=== PATIENT | female | born 1960 | race Two or more races ===

== ENCOUNTER 2016-10-12 10:07 | Day surgery (SDC) | payer OTHER ==
[~2016-10-12] VITALS: Ht 157.5 cm; Wt 125.2 kg
[~2016-10-12 10:07] MED LIST: ASPI81TA9 PO; BECL8.7A6 IH; DILT180C29 PO; Doxycycline Hyclate PO; EDOX60TA PO; GUAI600T38 PO; LEVO500T38 PO; LISI20TA PO; MONT10TA6 PO; PROAIR HFA8.5 GM IH
[2016-10-12] MEDS ORDERED: IV RINGERS,LACTATED 1000ML 1,000 ML IV SCH ×2 (10:18→11:31)
[2016-10-12] MEDS ORDERED: PROPOFOL 20 ML IV ONE (10:22)
[2016-10-12] MEDS ORDERED: MIDAZOLAM HCL/PF 2 MG/2 ML VIAL. ONE (10:22)
[2016-10-12] MEDS ORDERED: LIDOCAINE 2% 100 MG/5 ML SYRINGE. ONE (10:22)
[2016-10-12] MEDS ORDERED: FENTANYL PF 100 MCG/2 ML VIAL. ONE (10:22)
[2016-10-12] MEDS ORDERED: FENTANYL PF 100 MCG/2 ML VIAL. IV PRN ×3 (10:30→11:45)
[2016-10-12] MEDS ORDERED: CEFAZOLIN 2GM PREMIX 50 ML IV ONE (10:30)
[2016-10-12] MEDS ORDERED: LIDOCAINE 1% 1 ML SYRINGE. ID PRN ×2 (10:30→11:45)
[2016-10-12] MEDS ORDERED: MIDAZOLAM HCL/PF 2 MG/2 ML VIAL. IV PRN (10:30)
[2016-10-12] MEDS ORDERED: ACETAMINOPHEN INTRAVENOUS 100 ML IV ONE (10:30)
[2016-10-12] MEDS ORDERED: BUPIVACAINE-EPI 0.25%-1:200000 MPF 30 ML VIAL. ONE (10:44)
[2016-10-12] MEDS ORDERED: CEFAZOLIN PREMIX 2 GM/50 ML BAG. IV ONE (11:00)
[2016-10-12] MEDS ORDERED: DEXAMETHASONE SOD PHOS 20 MG/5 ML VIAL. ONE (11:17)
[2016-10-12] MEDS ORDERED: PHENYLEPHRINE in 0.9% NACL PF 1 MG/10 ML DISP.SYRIN. IV ONE (11:17)
[2016-10-12] MEDS ORDERED: ONDANSETRON PF 4 MG/2 ML VIAL. ONE (11:17)
[2016-10-12] MEDS ORDERED: SEVOFLURANE 61 TO 120 MINUTES. IH ONE (11:33)
[2016-10-12] MEDS ORDERED: DESFLURANE 31 TO 60 MINUTES IH ONE (11:33)
[2016-10-12] MEDS ORDERED: KETOROLAC 60 MG/2 ML INJ FOR OR. ONE (11:36)
[2016-10-12] MEDS ORDERED: MORPHINE SULFATE 2 MG/ML DISP.SYRIN. IV PRN (11:45)
[2016-10-12] MEDS ORDERED: HYDROMORPHONE 2 MG/ML VIAL. IV PRN (11:45)
[2016-10-12] MEDS ORDERED: ONDANSETRON PF 4 MG/2 ML VIAL. IV PRN (11:45)
[2016-10-12] MEDS ORDERED: PROCHLORPERAZINE 10 MG/2 ML VIAL. IV PRN (11:45)
[2016-10-12] MEDS ORDERED: HYDROCODONE/APAP 5/325MG TABLET. ONE (12:27)
[2016-10-12] MEDS: FENTANYL PF 100 MCG/2 ML VIAL. IV PRN ×2 (12:29→13:01)
[2016-10-12] MEDS ORDERED: HYDROCODONE/APAP 5/325MG TABLET. PO ONE (12:30)
--- NOTE | 2016-10-12 12:47 | PDOC ---
BRIEF OPERATIVE NOTE Date: Oct 12, 2016 Pre-Op Diagnosis Right breast mass Post-Op Diagnosis Same with breast abscess Procedure Performed Excision of mass Surgeon Kenroy Anesthesia Type: General Blood Loss 30ml Specimens Obtained Right breast mass and cultures Findings as above Complications None MANOLO GALICIA MD Oct 12, 2016 12:47
--- NOTE | 2016-10-12 12:48 | DISCH ---
DISCHARGE INSTRUCTIONS Condition on Discharge Condition on Discharge: Stable Activity After Discharge Activity Instructions for Disc: Activity as tolerated Diet after Discharge Diet after Discharge: Regular Wound Incision Care Other wound/incision instructi: May shower in 24 hours Contacting the after DC Call your doctor for: If your condition worsens Follow-Up Follow up with: Dr Galicia in 2 weeks MANOLO GALICIA MD Oct 12, 2016 12:48
[2016-10-12] MEDS ORDERED: AMOX1TAB61 PO (12:53)
[2016-10-12] MEDS ORDERED: HYDR-971 PO (12:55)
[2016-10-12 13:30] VITALS: BP 110/57
--- NOTE | 2016-10-12 14:09 | OP ---
DATE OF SURGERY: 10/12/2016 PREOPERATIVE DIAGNOSIS: Right breast mass. POSTOPERATIVE DIAGNOSIS: Right breast mass. PROCEDURE: Excision of mass. SURGEON: Dr. Lui Galicia. INDICATIONS: The patient is a 56-year-old female who had an incision and drainage of a breast abscess several months ago. She subsequently developed some granulation tissue above the skin in that area. Recently, she has been having some more drainage. Procedure of excision of mass was explained to the patient in detail. Risks and benefits were also discussed including bleeding and infection. Alternatives of procedure were also discussed with the patient who seemed to understand and gave verbal and written consent to have the procedure performed. DESCRIPTION OF PROCEDURE: The patient was taken to the operating room and placed in the supine position. General anesthesia was initiated. Once the patient was asleep, her right breast was prepped and draped in the usual sterile fashion using Betadine scrub and solution. It was noted that there was some purulent drainage from this area. Cultures were taken. Using 10-blade scalpel, elliptical incision was made at the skin around the mass, was carried down through the subcutaneous tissue with electrocautery for hemostasis. It was noted that the mass was approximately 8 cm x 8 cm. There was also an area of some fluctuance that connected to the mass that appeared to be abscess. This was drained and excised with the mass. Electrocautery was used to provide hemostasis. The wound was irrigated and suctioned dry. The wound was then closed in 2 layers, deep layer with running 3-0 Vicryl, and the skin was reapproximated with 4-0 subcuticular Monocryl. Mastisol, Steri-Strips, 4 x 4's, and Medipore tape were applied as dressing. The patient was awakened, extubated in the operating room, taken to recovery in stable condition. All sponge, instrument counts were listed as correct. Estimated blood loss 20 mL. LUI GALICIA MD DR: CHOCO/matheus JOB#: [id number] / [id number] DRU Combs MD
== END 2016-10-12 13:40 | disposition home or self-care (01) ==
LOC: SURG 10:07
PROVIDERS: ATTEND Surgery
DX: N63 Unspecified lump in breast (principal); J45.909 Unspecified asthma, uncomplicated; E66.9 Obesity, unspecified; M19.90 Unspecified osteoarthritis, unspecified site; I10 Essential (primary) hypertension; I48.91 Unspecified atrial fibrillation; D64.9 Anemia, unspecified; Z98.51 Tubal ligation status
CPT/HCPCS: 19120; 87071; 87075; 87205; J0690; J1100; J1885; J2250; J2370; J2405; J2704; J3010

== ENCOUNTER 2016-11-10 07:10 | Day surgery (SDC) | payer OTHER ==
[~2016-11-10] VITALS: Ht 157.5 cm; Wt 123.8 kg
[~2016-11-10 07:10] MED LIST changes: +ACETAMINOPHEN INTRAVENOUS 100 ML IV ONE; +ACETAMINOPHEN INTRAVENOUS 100 ML IV PRN; +AMOX1TAB61 PO; +HYDR-971 PO; +HYDROmorphone 2 MG/ML VIAL IV PRN; +IV RINGERS,LACTATED 1000ML 1,000 ML IV SCH; +LIDOCAINE 1% 1 ML SYRINGE. ID PRN; +MORPHINE SULFATE 2 MG/ML DISP.SYRIN. IV PRN; +ONDANSETRON PF 4 MG/2 ML VIAL. IV PRN; +PROCHLORPERAZINE 10 MG/2 ML VIAL. IV PRN; +fentaNYL PF VIAL 100 MCG/2 ML VIAL IV PRN
[2016-11-10] MEDS ORDERED: LIDOCAINE 1% / SOD BICARB 8.4% 20 ML VIAL. IJ ONE (07:45)
[2016-11-10] MEDS ORDERED: BENA1TAB44 PO (07:48)
[2016-11-10] MEDS ORDERED: LIDOCAINE 2% 100 MG/5 ML SYRINGE. ONE (08:22)
[2016-11-10] MEDS ORDERED: fentaNYL PF VIAL 100 MCG/2 ML VIAL ONE (08:22)
[2016-11-10] MEDS ORDERED: PROPOFOL 100 ML IV ONE (08:22)
[2016-11-10] MEDS ORDERED: ISOSULFAN BLUE 50 MG/5 ML VIAL. SQ ONE (09:18)
[2016-11-10] MEDS ORDERED: SEVOFLURANE 16 TO 30 MINUTES. IH ONE (09:49)
[2016-11-10] MEDS ORDERED: PHENYLEPHRINE in 0.9% NACL PF 1 MG/10 ML DISP.SYRIN. IV ONE (09:49)
[2016-11-10] MEDS ORDERED: DEXAMETHASONE SOD PHOS 20 MG/5 ML VIAL. ONE (09:49)
[2016-11-10] MEDS ORDERED: ONDANSETRON PF 4 MG/2 ML VIAL. ONE (10:02)
--- NOTE | 2016-11-10 10:16 | RAD ---
Right breast radionuclide sentinel node localization, 11/10/2016: History: Right breast cancer Under aseptic conditions and utilizing ethyl chloride spray for topical anesthesia a total of 1.1 mCi of technetium 99 M filtered sulfur colloid mixed with 0.5 cc of 1% buffered lidocaine was injected subdermally in the right periareolar region in 4 divided doses. No imaging was performed. The patient tolerated the procedure well and was sent to surgery in good condition.
--- NOTE | 2016-11-10 10:45 | PDOC ---
BRIEF OPERATIVE NOTE Date: November 10, 2016 Pre-Op Diagnosis Right breast cancer Post-Op Diagnosis Same Procedure Performed Right excision of lumpectomy site and SLND Surgeon Kenroy Anesthesia Type: General Blood Loss 50ml Specimens Obtained Breast tissue and right axillary sentinal lymph nodes Findings as above Complications None MANOLO GALICIA MD November 10, 2016 10:45
--- NOTE | 2016-11-10 10:46 | DISCH ---
DISCHARGE INSTRUCTIONS Condition on Discharge Condition on Discharge: Stable Activity After Discharge Activity Instructions for Disc: Activity as tolerated Diet after Discharge Diet after Discharge: Regular Wound Incision Care Other wound/incision instructi: Dori shower in 24 hours Contacting the after DC Call your doctor for: If your condition worsens Follow-Up Follow up with: Dr Galicia in 2 weeks MANOLO GALICIA MD November 10, 2016 10:46
[2016-11-10] MEDS: fentaNYL PF VIAL 100 MCG/2 ML VIAL IV PRN ×4 (10:54→12:11)
[2016-11-10] MEDS ORDERED: HYDROCODONE/APAP 5/325MG TABLET. PO ONE (11:15)
--- NOTE | 2016-11-10 11:28 | OP ---
DATE OF SURGERY: 11/10/2016 PREOPERATIVE DIAGNOSIS: Right breast cancer. POSTOPERATIVE DIAGNOSIS: Right breast cancer. PROCEDURE: Re-excision of lumpectomy and sentinel lymph node dissection. SURGEON: Lui Galicia M.D. INDICATIONS: The patient is a 56-year-old female, underwent excision of a right breast mass which subsequently turned out to have non-invasive carcinoma with close margins. The procedure of re-excision and sentinel lymph node biopsy was explained to the patient in detail. Risks, benefits were also discussed including bleeding and infection. Alternatives of this procedure were also discussed with the patient, who seemed to understand and gave verbal and written consent to have the procedure performed. DESCRIPTION OF PROCEDURE: The patient was taken to the operating room and placed in the supine position, general anesthesia was initiated. Once the patient was asleep and intubated, her right chest and axilla were prepped and draped in usual sterile fashion using ChloraPrep. A 5 mL of Lymphazurin were injected around the nipple-areolar complex. Once this was complete, attention was turned to re-excision of the lumpectomy site. The scar was excised with a 10 blade scalpel, was carried down through subcutaneous tissue with electrocautery for hemostasis to excise area of breast tissue. This was sent for pathology, marked with 2 sutures, long suture was for lateral margin and the short suture for superior margin of the specimen. Electrocautery was used to provide hemostasis. Once this was completed, it was packed with laparoscopic sponges and attention was returned to the sentinel node of biopsy. There was good C-Trak radioactive marker in the axilla, where there was the highest, this is where the incision was made with 10 blade scalpel, was carried down through subcutaneous tissue with electrocautery for hemostasis. Lymphazurin was visualized going to a fairly large cluster of at least 2 nodes. These were excised and showed a very high degree of radioactivity about the C-Trak. Electrocautery was used to control hemostasis and the wound was closed in 2 layers, a deep layer with running 3-0 Vicryl and the skin was reapproximated with 4-0 subcuticular Monocryl. Lumpectomy incision was closed with running 3-0 Vicryl and a 4-0 subcuticular Monocryl. Mastisol, Steri-Strips, 4 x 4, Medipore tape were applied as dressings. The patient was awakened, extubated in the operating room, taken to recovery in stable condition. All sponge, instrument counts listed as correct. Estimated blood loss is 50 mL. LUI GALICIA MD DR: CHOCO/matheus JOB#: [id number] / [id number] DRU Combs MD
[2016-11-10] MEDS ORDERED: HYDR-2666 PO (11:29)
[2016-11-10 12:25] VITALS: BP 110/75
== END 2016-11-10 13:08 | disposition home or self-care (01) ==
LOC: SURG 07:10
PROVIDERS: ATTEND Surgery
DX: C50.911 Malignant neoplasm of unspecified site of right female breast (principal); I48.91 Unspecified atrial fibrillation; J45.909 Unspecified asthma, uncomplicated; I10 Essential (primary) hypertension; E66.9 Obesity, unspecified; D64.9 Anemia, unspecified; Z85.3 Personal history of malignant neoplasm of breast; Z98.51 Tubal ligation status; Z72.89 Other problems related to lifestyle
CPT/HCPCS: 19301; 38525; 38792; 96374; A9541; J0131; J1100; J2370; J2405; J2704; J3010; Q9968

== ENCOUNTER → 2016-12-21 | Outpatient (CLI) | payer OTHER ==
[~2016-12-21] MED LIST changes: -ACETAMINOPHEN INTRAVENOUS 100 ML IV ONE; -ACETAMINOPHEN INTRAVENOUS 100 ML IV PRN; +ASPI-612 PO; -ASPI81TA9 PO; +BENA1TAB44 PO; +FERR-36 PO; -GUAI600T38 PO; +GUAI600T47 PO; +HYDR-2758 PO; -HYDROmorphone 2 MG/ML VIAL IV PRN; -IV RINGERS,LACTATED 1000ML 1,000 ML IV SCH; -LEVO500T38 PO; +LEVO500T59 PO; -LIDOCAINE 1% 1 ML SYRINGE. ID PRN; -MORPHINE SULFATE 2 MG/ML DISP.SYRIN. IV PRN; -ONDANSETRON PF 4 MG/2 ML VIAL. IV PRN; -PROCHLORPERAZINE 10 MG/2 ML VIAL. IV PRN; -fentaNYL PF VIAL 100 MCG/2 ML VIAL IV PRN
--- NOTE | 2016-12-21 10:25 | CARD ---
APPROVED REPORT EXAM: LIMITED Two-dimensional echocardiogram. Other Information Quality : Technically LimitedHR: 76bpm Technically limited study due to body habitus. INDICATION LV Function: For breast cancer RISK FACTORS Obesity LEFT VENTRICLE The left ventricle is normal size. There is normal left ventricular wall thickness. The left ventricu lar systolic function is normal and the ejection fraction is within normal range. The Ejection Fracti on is 55-60%. There is grossly normal LV segmental wall motion. RIGHT VENTRICLE The right ventricle is normal size. The right ventricular systolic function is normal. AORTIC VALVE Limited echo, the cardiac valves were not assessed. GREAT VESSELS Not assessed PERICARDIAL EFFUSION There is no evidence of significant pericardial effusion. Critical Notification Critical Value: No <Conclusion> The left ventricular systolic function is normal and the ejection fraction is within normal range. Th e Ejection Fraction is 55-60%. There is grossly normal LV segmental wall motion.
== END | disposition home or self-care (01) ==
LOC: ECHO 07:34
PROVIDERS: ATTEND Internal Medicine Hematology & Oncology
DX: C50.911 Malignant neoplasm of unspecified site of right female breast (principal); E66.9 Obesity, unspecified
CPT/HCPCS: 93308

== ENCOUNTER → 2016-12-25 | Outpatient (CLI) | payer OTHER ==
[~2016-12-25] MED LIST changes: +IOHEXOL 240 MG/ML 50ML VIAL. PO ONE; +IOHEXOL 300 MG/ML 75 ML VIAL IV ONE
--- NOTE | 2016-12-25 11:09 | RAD ---
Indication malignant neoplasm right chest. Staging. Breast malignancy. Contrast imaging through the chest abdomen and pelvis was performed. Both oral and IV contrast were administered. Approximately 75 cc of Omnipaque 300 was administered intravenously. No prior CT imaging of the abdomen or pelvis is available. The chest is compared to an exam 06/15/2015. CT chest: Findings There is a fluid collection associated with the right breast likely reflecting a postop seroma or hematoma. The thoracic aorta appears unremarkable. There are a few small mediastinal lymph nodes which are likely incidental and appear similar to the previous exam. No acute finding is seen in the chest. There is no dominant soft tissue mass in either lung. There is no evidence of metastatic disease to the chest CT abdomen and pelvis: Findings. There are a few lymph nodes in the groin. These are likely incidental. There is a well-defined soft tissue mass adjacent to the splenic flexure of the large bowel measuring approximately 2 cm in greatest dimension. This is of doubtful clinical significance. It is similar to the previous exam. It may represent a splenule. The liver is unremarkable. The spleen appears normal. The gallbladder is grossly normal. No pancreatic mass is seen. No adrenal mass is seen and the kidneys appear normal. An acute finding in the abdomen or evidence of metastatic disease is not seen. In the pelvis no acute finding is seen. There is no evidence of metastatic disease. IMPRESSION: No acute finding seen in the chest, abdomen or pelvis. No definite evidence of metastatic disease. Postop seroma or hematoma right breast. Soft tissue mass, likely incidental, in the left upper abdomen similar to the study 06/15/2015. PQRS Compliance Statement: One or more of the following individualized dose reduction techniques were utilized for this examination: 1. Automated exposure control 2. Adjustment of the mA and/or kV according to patient size 3. Use of iterative reconstruction technique
--- NOTE | 2016-12-25 14:22 | RAD ---
Bone Scintigraphy - Whole Body: Radiopharmaceutical: 26 mCi Tc-99m HDP I.V. History: History of breast cancer, staging. Comparison: CT chest abdomen pelvis same day exam. Findings: Delayed anterior and posterior whole body bone scintigraphy was performed. There is normal distribution of activity throughout the skeleton. Faint radiotracer uptake identified in the bilateral shoulder joints, bilateral knees, ankles and thoracolumbar vertebral region likely degeneration. Faint nonspecific radiotracer uptake identified in the distal sternum ( no corresponding lesion identified on CT scan). Impression: No evidence to suggest osteoblastic skeletal metastasis.
--- NOTE | 2016-12-26 10:21 | RAD ---
DATE: 12/25/2016 EXAM: DIGITAL DIAGNOSTIC BILATERAL, BREAST RIGHT HISTORY: History of breast cancer, lumpectomy COMPARISON: None available This study was interpreted with the benefit of Computerized Aided Detection (CAD ). FINDINGS: Breast Density: SCATTERED The breast parenchyma shows scattered fibroglandular densities. Breast parenchyma level B. There is irregular appearing density at 6: 00 position in the posterior right breast which persists on the spot compression views. Multiple bilateral intramammary lymph nodes identified. On ultrasound of the right breast there is a 4.9 x 3 0.6 to 3.2 cm cystic echogenicity identified containing linear echogenicity is within. Please note that there are no comparison mammograms available. ( Patient stated that she hasn't had a mammogram in the last 7 years.) IMPRESSION: Irregular appearing cystic echogenicity with echogenicity within identified at 6:00 position the right posterior breast, likely hematoma or seroma due to recent surgery. BI-RADS CATEGORY: 3 PROBABLE BENIGN-SHORT TERM F/U RECOMMENDED FOLLOW-UP: Ultrasound right breast in one month PQRS compliance statement: Patient information was entered into a reminder system with a target due date 01/24/2017 for the next mammogram. Mammography is a sensitive method for finding small breast cancers, but it does not detect them all and is not a substitute for careful clinical examination. A negative mammogram does not negate a clinically suspicious finding and should not result in delay in biopsying a clinically suspicious abnormality. "Our facility is accredited by the [employer] Mammography Program." ROSALIED
== END | disposition home or self-care (01) ==
LOC: NM 07:32
PROVIDERS: ATTEND Internal Medicine Hematology & Oncology
DX: C50.911 Malignant neoplasm of unspecified site of right female breast (principal); I10 Essential (primary) hypertension; I48.91 Unspecified atrial fibrillation; J45.909 Unspecified asthma, uncomplicated; Z79.01 Long term (current) use of anticoagulants
CPT/HCPCS: 71260; 74177; 76641; 78306; 96374; A9503; G0204; Q9966; Q9967; 77066

== ENCOUNTER 2016-12-26 06:35 | Day surgery (SDC) | payer OTHER ==
[~2016-12-26] VITALS: Ht 157.5 cm; Wt 123.4 kg
[~2016-12-26 06:35] MED LIST changes: +HYDROmorphone 2 MG/ML VIAL IV PRN; -IOHEXOL 240 MG/ML 50ML VIAL. PO ONE; -IOHEXOL 300 MG/ML 75 ML VIAL IV ONE; +IV RINGERS,LACTATED 1000ML 1,000 ML IV SCH; +LIDOCAINE 1% 1 ML SYRINGE. ID PRN; +MEPERIDINE PF 25 MG/ML VIAL. IV PRN; +MIDAZOLAM HCL/PF 2 MG/2 ML VIAL. IV PRN; +MORPHINE SULFATE 4 MG/ML DISP.SYRIN. IV PRN; +PROCHLORPERAZINE 10 MG/2 ML VIAL. IV PRN; +diphenhydrAMINE 50 MG/ML VIAL IV PRN; +fentaNYL PF VIAL 100 MCG/2 ML VIAL IV PRN
[2016-12-26] MEDS ORDERED: HEPARIN PF 500 UNIT/5 ML DISP.SYRIN. IV ONE ×2 (07:24→08:16)
[2016-12-26] MEDS ORDERED: BUPIVACAINE 0.25% 50 ML VIAL. ONE (07:24)
[2016-12-26] MEDS ORDERED: HEPARIN for IV BOLUS 10,000 UNIT/10 ML VIAL. ONE (07:25)
[2016-12-26] MEDS ORDERED: PROPOFOL 20 ML IV ONE (07:30)
[2016-12-26] MEDS ORDERED: MIDAZOLAM HCL/PF 2 MG/2 ML VIAL. ONE (07:30)
--- NOTE | 2016-12-26 07:34 | PDOC1 ---
History and Physical Date of Admission Date of Admission DATE: 12/26/16 TIME: 07:31 Identification/Chief Complaint Chief Complaint Right breast cancer Problems: History of Present Illness History of Present Illness 56 yo female with history of right breast cancer. Here for placement of port-a- cath for chemotherapy. Past Medical History Cardiovascular: HTN Pulmonary: Asthma CENTRAL NERVOUS SYSTEM: Other GI: No pertinent hx Heme/Onc: No pertinent hx Hepatobiliary: No pertinent hx Psych: No pertinent hx Musculoskeletal: Osteoarthritis Rheumatologic: No pertinent hx Infectious disease: No pertinent hx Renal/: No pertinent hx Endocrine: No pertinent hx Past Surgical History Past Surgical History: Tubal Ligation, Other Family History Family History: Coronary Artery Disease, Stroke Social History ALCOHOL: none Drugs: None Current Medications Current Medications Current Medications Fentanyl Citrate (Fentanyl 2ml Vial) 50 mcg PRN Q5MIN PRN IV Acute Pain; Start 12/25/16 at 12:15; Stop 12/26/16 at 12:14 Morphine Sulfate 4 mg PRN Q10MIN PRN IV Moderate Pain; Start 12/25/16 at 12:15 ; Stop 12/26/16 at 12:14 Hydromorphone HCl (Dilaudid) 0.4 mg PRN Q10MIN PRN IV Moderate to severe pain; Start 12/25/16 at 12:15; Stop 12/26/16 at 12:14 Meperidine HCl (Demerol) 12.5 mg PRN Q5MIN PRN IV SHIVERING; Start 12/25/16 at 12:15; Stop 12/26/16 at 12:14 Prochlorperazine Edisylate (Compazine) 5 mg PRN Q6HRS PRN IV Nausea/Vomiting, 1st Choice; Start 12/25/16 at 12:15; Stop 12/26/16 at 12:14 Diphenhydramine HCl (Benadryl) 12.5 mg PRN Q2HR PRN IV ITCHING; Start 12/25/16 at 12:15; Stop 12/26/16 at 12:14 Midazolam HCl (Versed) 2 mg PRN 1X PRN IV PRIOR TO PROCEDURE; Start 12/25/16 at 12:15; Stop 12/26/16 at 12:14 Midazolam HCl (Versed) 1 mg PRN 1X PRN IV PRIOR TO PROCEDURE; Start 12/25/16 at 12:15; Stop 12/26/16 at 12:14 Fentanyl Citrate (Fentanyl 2ml Vial) 25 mcg PRN Q5MIN PRN IV X 2 DOSES FOR PAIN ; Start 12/25/16 at 12:15; Stop 12/26/16 at 12:14 Fentanyl Citrate (Fentanyl 2ml Vial) 50 mcg PRN Q5MIN PRN IV X 2 DOSES FOR PAIN ; Start 12/25/16 at 12:15; Stop 12/26/16 at 12:14 Ringer's Solution 1,000 ml @ 125 mls/hr Q8H IV Last administered on 12/26/16t 07:15; Start 12/25/16 at 12:14; Stop 12/26/16 at 00:13; Status DC Lidocaine HCl 2 ml 1X PRN PRN ID IV START; Start 12/25/16 at 12:15; Stop at 12:14 Cefazolin Sodium/ Dextrose 50 ml @ 100 mls/hr 1X PREOP PRN IV PRIOR TO PROCEDURE; Start 12/26/16 at 06:00; Stop 12/26/16 at 18:00 Heparin Sodium (Porcine) (Hep Lock Adult) 500 unit STK-MED ONCE IV ; Start 12/26 at 07:24; Stop 12/26/16 at 07:25; Status DC Bupivacaine HCl (Marcaine 0.25%) 50 ml STK-MED ONCE .ROUTE ; Start 12/26/16 at 07:24; Stop 12/26/16 at 07:25; Status DC Heparin Sodium (Porcine) (Heparin Sodium) 10,000 unit STK-MED ONCE .ROUTE ; Start 12/26/16 at 07:25; Stop 12/26/16 at 07:26; Status DC Propofol 20 ml @ As Directed STK-MED ONCE IV ; Start 12/26/16 at 07:30; Stop at 07:31; Status DC Active Scripts Active Savaysa (Edoxaban Tosylate) 60 Mg Tablet 60 Mg PO DAILY Diltiazem 24HR Cd (Diltiazem Hcl) 180 Mg Cap.er.24h 180 Mg PO DAILY Aspirin Ec (Aspirin) 81 Mg Tablet.dr 81 Mg PO DAILYWBKFT 30 Days Singulair Tablet (Montelukast Sodium) 10 Mg Tablet 10 Mg PO QHS Reported Iron (Ferrous Sulfate) 325 Mg Tablet 325 Mg PO BID Lotensin Hct 20-25 mg Tablet (Benazepril/Hydrochlorothiazide) 1 Each Tablet 1 Each PO DAILY Proair Hfa Inhaler (Albuterol Sulfate) 8.5 Gm Hfa.aer.ad 2 Puff IH PRN QID PRN not given today, every 6 hrs as needed for shortness of breath Qvar 80MCG Inhaler (Beclomethasone Dipropionate) 8.7 Gm Aer.w.adap 1 Puff IH PRN BID PRN next dose tonight, 12-10 at bedtime Allergies Allergies: Coded Allergies: No Known Drug Allergies (Unverified , 12/26/16) Physical Exam General: Alert, Oriented X3, Cooperative, No acute distress HEENT: Atraumatic, PERRLA, EOMI Lungs: Clear to auscultation, Normal air movement Heart: RRR, no gallops, no murmurs Breasts: Surgical scars noted, Unchged from prev exams Abdomen: Normal bowel sounds, Soft, No tenderness Rectal Exam: not examined Extremities: No clubbing, No cyanosis, No edema Skin: No significant lesion Neuro: Normal speech Psych/Mental Status: Mental status NL Vitals Vitals Vital Signs Date Time Temp Pulse Resp B/P (MAP) Pulse Ox O2 Delivery O2 Flow Rate FiO2 12/26/16 07:11 98.2 88 18 139/72 97 Room Air 98.2 VTE Prophylaxis Ordered VTE Prophylaxis Devices: Yes VTE Pharmacological Prophylaxi: Contraindicated Assessment/Plan Assessment/Plan 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
--- NOTE | 2016-12-26 08:43 | PDOC ---
BRIEF OPERATIVE NOTE Date: Dec 26, 2016 Pre-Op Diagnosis Right breast cancer Post-Op Diagnosis Same Procedure Performed Port-a-cath Surgeon Kenroy Anesthesia Type: MAC Blood Loss 10ml Specimens Obtained None Findings as above Complications None MANOLO GALICIA MD Dec 26, 2016 08:43
--- NOTE | 2016-12-26 08:44 | DISCH ---
DISCHARGE INSTRUCTIONS Condition on Discharge Condition on Discharge: Stable Activity After Discharge Activity Instructions for Disc: Activity as tolerated Other activity instructions: May shower once needle has been removed after chemotherapy Diet after Discharge Diet after Discharge: Regular Contacting the DRDasha after DC Call your doctor for: If your condition worsens Follow-Up Follow up with: Dr Galicia in 2 weeks MANOLO GALICIA MD Dec 26, 2016 08:44
[2016-12-26] MEDS ORDERED: HYDR-971 PO (08:52)
[2016-12-26] MEDS ORDERED: HYDROcodone/APAP 5/325MG 1 TAB TABLET PO PRN ×2 (09:15)
[2016-12-26 09:26] VITALS: BP 127/61
--- NOTE | 2016-12-26 09:48 | OP ---
DATE OF SURGERY: 12/26/2016 PREOPERATIVE DIAGNOSIS: Right breast cancer. POSTOPERATIVE DIAGNOSIS: Right breast cancer. PROCEDURE: Port-A-Cath placement for chemotherapy. INDICATIONS: The patient is a 56-year-old female who had a lumpectomy for right breast cancer and is needing some chemotherapy and then long-term venous access. Procedure of Port-A-Cath placement was explained to the patient in detail. Risks and benefits were also discussed including bleeding, infection. Alternatives of this procedure were also discussed with the patient who seemed to understand and gave verbal and written consent to have the procedure performed. DESCRIPTION OF PROCEDURE: The patient was taken to the operating room and placed in the supine position. IV sedation was initiated. Once the patient was appropriately sedated, her neck and chest were prepped and draped in the usual sterile fashion using ChloraPrep. An area over the deltopectoral groove on the left side was injected with 0.25% Marcaine with epinephrine. Incision was made with a #15 blade scalpel, was carried down through subcutaneous tissues down to the cephalic vein, which was controlled proximally and distally with silk LigaSure. The vein was partially opened with a #11 blade scalpel and a Seldinger wire was placed under fluoroscopy which were transversing to the subclavian to the superior vena cava. At this point, a peel-away dilator was placed over the wire under fluoroscopy. Once the area had been dilated, the dilator was removed and a catheter was placed through the peel-away into the superior vena cava. Peel-away was then removed. The port was then placed on the end of the catheter. This was secured to the anterior chest wall through a subcutaneous pocket on the left chest with a 3-0 Prolene. Port was then accessed and there was good blood return. It was easily flushed with 100 units/mL of heparin solution. At this point, the deep subcutaneous layer was closed with a running 3-0 Vicryl. Port was then accessed with a 90 degree Posadas needle with IV tubing to be used tomorrow for chemotherapy. This was then packed with 1000 units/mL heparin, 3 mL was used. The skin was then closed with 4-0 subcuticular Monocryl. Mastisol, Steri-Strips, Telfa and Tegaderm were applied as dressing. The patient was awakened from sedation and taken to recovery in stable condition. All sponge, needle and instrument counts listed as correct. Estimated blood loss 10 mL. MANOLO GALICIA MD DR: CHOCO/matheus JOB#: [id number] / [id number]
== END 2016-12-26 09:59 | disposition home or self-care (01) ==
LOC: SURG 06:35
PROVIDERS: ATTEND Surgery
DX: C50.919 Malignant neoplasm of unspecified site of unspecified female breast (principal); I48.91 Unspecified atrial fibrillation; J45.909 Unspecified asthma, uncomplicated; E66.9 Obesity, unspecified; D64.9 Anemia, unspecified; F17.200 Nicotine dependence, unspecified, uncomplicated; M19.90 Unspecified osteoarthritis, unspecified site; I10 Essential (primary) hypertension; Z68.43 Body mass index [BMI] 50.0-59.9, adult; Z72.89 Other problems related to lifestyle
CPT/HCPCS: 36561; A4215; C1788; J0690; J2250; J2704; J3490; 36556

== ENCOUNTER → 2017-01-22 | Outpatient (CLI) | payer OTHER ==
[2016-12-26 09:26] VITALS: BP 127/61
[~2017-01-22] MED LIST changes: -HYDROmorphone 2 MG/ML VIAL IV PRN; -IV RINGERS,LACTATED 1000ML 1,000 ML IV SCH; -LIDOCAINE 1% 1 ML SYRINGE. ID PRN; -MEPERIDINE PF 25 MG/ML VIAL. IV PRN; -MIDAZOLAM HCL/PF 2 MG/2 ML VIAL. IV PRN; -MORPHINE SULFATE 4 MG/ML DISP.SYRIN. IV PRN; -PROCHLORPERAZINE 10 MG/2 ML VIAL. IV PRN; -diphenhydrAMINE 50 MG/ML VIAL IV PRN; -fentaNYL PF VIAL 100 MCG/2 ML VIAL IV PRN
--- NOTE | 2017-01-22 11:16 | RAD ---
Indication follow-up seroma. Targeted ultrasound was performed of the right breast. Note is made of an examination 12/25/2016. Note is made of surgical intervention 11/10/2016. Previously identified complex, predominantly cystic mass is again seen. The mass is considerably smaller. It now measures approximately 3.4 cm x 0.6 cm where as previously it measured approximately 3.6 x 3.2 cm. IMPRESSION: Fluid collection in the right breast persists but is considerably smaller most compatible with a collapsing hematoma or seroma. BI-RADS 2. Benign findings
== END | disposition home or self-care (01) ==
LOC: US 10:27
PROVIDERS: ATTEND Internal Medicine Hematology & Oncology
DX: C50.911 Malignant neoplasm of unspecified site of right female breast (principal)
CPT/HCPCS: 76641

== ENCOUNTER 2017-02-07 17:24 | Inpatient (IN) | payer OTHER ==
[~2017-02-07] VITALS: Ht 157.5 cm; Wt 118.9 kg
[2017-02-07] MEDS ORDERED: IV NORMAL SALINE 1000ML BAG 1,000 ML IV ONE (18:00)
[2017-02-07 18:15] LABS: BASO % 0 % (0-3); EOS % 0 % (0-3); HEMATOCRIT 25.6 % (36.0-47.0); HEMOGLOBIN 8.3 g/dL (12.0-15.5); LYMPH # 1.7 x10^3/uL (1.0-4.8); LYMPH % 14 % (24-48); MEAN CORPUSCULAR HEMOGLOBIN 24 pg (25-35); MEAN CORPUSCULAR HGB CONC 33 g/dL (31-37); MEAN CORPUSCULAR VOLUME 72 fL (79-100); MONO % 7 % (0-9); NEUT % 79 % (31-73); PLATELET COUNT 500 x10^3/uL (140-400); RED BLOOD COUNT 3.54 x10^6/uL (3.50-5.40); WHITE BLOOD COUNT 12.5 x10^3/uL (4.0-11.0)
[2017-02-07 18:16] LABS: BILIRUBIN,URINE MODERATE (NEG); GLUCOSE,URINE NEGATIVE (NEG); NITRITE,URINE NEGATIVE (NEG); PROTEIN,URINE 30 mg/dL (NEG-TRACE); UROBILINOGEN,URINE 0.2 mg/dL (0.2 mg/dL)
[2017-02-07 18:36] LABS: ALBUMIN/GLOBULIN RATIO 0.7 (1.0-1.7); GFR 11.5; MAGNESIUM 2.1 mg/dL (1.8-2.4); TOTAL BILIRUBIN 0.5 mg/dL (0.2-1.0); TOTAL PROTEIN 7.4 g/dL (6.4-8.2)
[2017-02-07 18:38] LABS: BACTERIA,URINE FEW /HPF (0-FEW); RBC,URINE 0 /HPF (0-2); SQUAMOUS EPITHELIAL CELL,UR MOD /LPF
[2017-02-07 18:47] LABS: POTASSIUM 2.5 mmol/L (3.5-5.1)
[2017-02-07] MEDS ORDERED: POTASSIUM CL 40MEQ IN 0.9%NACL 1,000 ML IV ONE (19:00)
[2017-02-07] MEDS ORDERED: ONDANSETRON PF 4 MG/2 ML VIAL. IV PRN (19:00)
[2017-02-07] MEDS ORDERED: fentaNYL PF VIAL 100 MCG/2 ML VIAL IV PRN (19:00)
[2017-02-07] MEDS ORDERED: POTASSIUM CHLORIDE 20 MEQ TABLET.ER. PO ONE (19:00)
[2017-02-07 19:43] LABS: ANISOCYTOSIS MOD; HYPOCHROMIA SLIGHT; MICROCYTOSIS SLIGHT; NUCLEATED RBC 5; PLT ESTIMATE INCREASED (ADEQUATE); POLYCHROMASIA SLIGHT
[2017-02-07 20:40] VITALS: BP 113/52
[2017-02-07] MEDS ORDERED: LIDO30CR TP (21:21)
[2017-02-07] MEDS ORDERED: DEXA4TAB PO (21:21)
[2017-02-07] MEDS ORDERED: ONDA8TAB9 PO (21:21)
[2017-02-07] MEDS ORDERED: MONT10TA9 PO (21:21)
--- NOTE | 2017-02-07 21:41 | PHYS DOC ---
Past Medical History Past Medical History: Asthma, Cancer, Hypertension, Other Additional Past Medical Histor: fractured tailbone, low back contusion, R BREAST CA Past Surgical History: Tubal ligation, Other Additional Past Surgical Histo: VARY & FILLOPIAN TUBE REMOVED, SINUS, L CHEST PORT, R LUMPECTOMY Alcohol Use: Rarely Drug Use: None Adult General Chief Complaint Chief Complaint: ABNORMAL LABS [facility] HPI Patient is a 56 year old female presenting to the emergency department for evaluation of an elevated creatinine level. He has a normal creatinine 0.9 however on her lab tests today was 4.0 and she admits that she has not been eating or drinking much at home. She received a blood transfusion prior to coming here and says that she is feeling somewhat better after the transfusion. Patient denies any chest pain shortness of breath diaphoresis nausea vomiting or diarrhea. She is in no obvious distress with normal vital signs. She is getting chemotherapy and her oncologist is Dr. Romero. Review of Systems Review of Systems Constitutional: Denies fever or chills [] Eyes: Denies change in visual acuity, redness, or eye pain [] HENT: Denies nasal congestion or sore throat [] Respiratory: Denies cough or shortness of breath [] Cardiovascular: No additional information not addressed in HPI [] GI: Denies abdominal pain, nausea, vomiting, bloody stools or diarrhea [] : Denies dysuria or hematuria [] Musculoskeletal: Denies back pain or joint pain [] Integument: Denies rash or skin lesions [] Neurologic: Denies headache, focal weakness or sensory changes [] Allergies Allergies Allergies Coded Allergies Type Severity Reaction Last Updated Verified No Known Drug Allergies 02/07/17 No Physical Exam Physical Exam Constitutional: Well developed, well nourished, no acute distress, non-toxic appearance. [] HENT: Normocephalic, atraumatic, bilateral external ears normal, oropharynx moist, no oral exudates, nose normal. [] Eyes: PERRLA, EOMI, conjunctiva pale, no discharge. [] Neck: Normal range of motion, no tenderness, supple, no stridor. [] Cardiovascular:Heart rate regular rhythm, no murmur [] Lungs & Thorax: Bilateral breath sounds clear to auscultation [] Abdomen: Bowel sounds normal, soft, no tenderness, no masses, no pulsatile masses. [] Skin: Warm, dry, no erythema, no rash. [] Back: No tenderness, no CVA tenderness. [] Extremities: No tenderness, no cyanosis, no clubbing, ROM intact, no edema. [] Neurologic: Alert and oriented X 3, normal motor function, normal sensory function, no focal deficits noted. [] Current Patient Data Vital Signs Vital Signs Date Time Temp Pulse Resp B/P (MAP) Pulse Ox O2 Delivery O2 Flow Rate FiO2 02/07/17 17:35 97.9 93 20 126/69 (88) 98 Room Air 97.9 Lab Values Laboratory Tests Test 02/07/17 17:34 Urine Collection Type Unknown Urine Color [place] Urine Clarity Cloudy Urine pH 5.0 Urine Specific [place] 1.025 Urine Protein 30 mg/dL (NEG-TRACE) Urine Glucose (UA) Negative mg/dL (NEG) Urine Ketones (Stick) Trace mg/dL (NEG) Urine Blood Trace (NEG) Urine Nitrite Negative (NEG) Urine Bilirubin Moderate (NEG) Urine Urobilinogen Dipstick 0.2 mg/dL (0.2 mg/dL) Urine Leukocyte Esterase Negative (NEG) Urine RBC 0 /HPF (0-2) Urine WBC 5-10 /HPF (0-4) Urine Squamous Epithelial Cells Mod /LPF Urine Transitional Epithelial Cells Few /LPF Urine Amorphous Sediment Present /HPF Urine Bacteria Few /HPF (0-FEW) Urine Hyaline Casts Many /HPF Urine Mucus Mod /LPF EKG EKG [] Radiology/Procedures Radiology/Procedures [] Course & Med Decision Making Course & Med Decision Making Patient is anemic and has increased creatinine level likely from dehydration. He is profoundly hypokalemic so she will have her electrolytes replaced in addition to being rehydrated and be admitted for further observation and treatment. Dragon Disclaimer Dragon Disclaimer This electronic medical record was generated, in whole or in part, using a voice recognition dictation system. Departure Departure Impression: Primary Impression: Renal failure Additional Impressions: Anemia Breast cancer Hypokalemia Disposition: ADMITTED INPATIENT Condition: STABLE Referrals: DRU BUI MD (PCP) Problem Qualifiers Primary Impression: Renal failure Renal failure chronicity: acute Acute renal failure type: unspecified Qualified Codes: N17.9 - Acute kidney failure, unspecified CYNTHIA RAHMAN DO Feb 07, 2017 21:41
[2017-02-07] MEDS ORDERED: NON FORMULARY ITEM (Beclomethasone Dipropionate (Qvar 80MCG Inhaler) 1 PUFF) IH PRN (22:15)
[2017-02-07] MEDS ORDERED: NON FORMULARY ITEM (Albuterol Sulfate (Proair Hfa Inhaler) 2 PUFF) IH PRN (22:15)
[2017-02-07] MEDS ORDERED: ONDANSETRON ODT 4 MG TAB.RAPDIS. PO PRN (22:30)
[2017-02-07] MEDS: POTASSIUM CHLORIDE 30 MEQ in IV NORMAL SALINE 1000ML BAG 1,000 ML IV SCH (23:00)
[2017-02-07 23:09] VITALS: BP 110/39
--- NOTE | 2017-02-07 23:09 | HP ---
ADMIT DATE: 02/07/2017 CHIEF COMPLAINT: Anemia. HISTORY OF PRESENT ILLNESS: The patient is a 56-year-old -P[place]deinig woman who had been diagnosed with breast CA in October of this year, had undergone lumpectomy and is currently undergoing chemotherapy under Dr. Romero's guidance with AC given q.2 weeks. She is technically due for her 4th infusion tomorrow and had her routine followup with Dr. Romero today. She was found with significant anemia and therefore referred to the Emergency Room for transfusions. She admits to significant fatigue and not feeling well. She actually had difficulties with her last chemo round requiring Diflucan and Magic mouthwash for oral thrush and her p.o. intake was decreased. In addition, she had developed diarrhea on Sunday, which lasted approximately 48 hours, got better on Sunday. In the Emergency Room, she was found with significant elevation of her creatinine over her normal baseline and is admitted for anemia as well as acute kidney failure. PAST MEDICAL HISTORY: Chronic anemia, has been on iron t.i.d. for a long time, asthma, hypertension, breast cancer as above, status post right lumpectomy, currently on chemo, status post salpingo-oophorectomy. FAMILY HISTORY: No breast cancers. A sister and daughter are both anemic as well. Positive for heart history. SOCIAL HISTORY: Lives with her family. Never smoked and no toxic habits. ALLERGIES: No known drug allergies. MEDICATIONS: MAR reconciled with home medications. REVIEW OF SYSTEMS: Positive for generalized malaise, myalgias, arthralgias, diarrhea as per HPI. Denies any chest pain, any shortness of breath, no headaches, vision problems. Rest of organ system review aside from HPI is noncontributory. PHYSICAL EXAMINATION: VITAL SIGNS: From today show a blood pressure of 119/60, heart rate of 90, respiratory rate of 22. She is afebrile. GENERAL: This is a morbidly obese 56-year-old -[place] woman, alert and oriented, in no acute distress, very pleasant. HEENT: Shows no scleral icterus. NECK: Supple, without any lymphadenopathy. LUNGS: Clear bilaterally. HEART: Has regular rate and rhythm. ABDOMEN: Has positive bowel sounds, soft, nontender. EXTREMITIES: Show no edema. SKIN: Warm, soft and dry without any rash. LABORATORY DATA: CBC with a WBC of 12.5, hemoglobin 8.3, platelets of 500, MCV is 72. Differential with 19 bands (did receive Neulasta after chemo 2 weeks ago). Chemistries with a BUN and creatinine of 52 and 4.0, potassium of 4.5, sodium at 139, glucose at 121, normal LFTs, albumin at 3.0. UA with a specific gravity of 1.025, 5-10 wbc's, but only few bacteria. IMAGING STUDIES: None obtained. ASSESSMENT AND PLAN: The patient is a 56-year-old woman who is currently undergoing chemotherapy for her breast cancer with Adriamycin and Cytoxan and is now presenting with significant acute kidney injury, suspected secondary to dehydration and related to chemotherapy. We will rehydrate IV. We will replete potassium as indicated. Renal consult will be obtained. Dr. Romeor will be consulted as well. With a hemoglobin of 8, transfusion is not indicated at this time. We will continue to monitor labs. The patient has a history of atrial fibrillation with rapid ventricular response reported 3 years ago. She has been well controlled on diltiazem and is currently on edoxaban p.o. for anticoagulation. We will switch to other oral anticoagulant as available here. BETH GHOTRA MD DR: PALMER/matheus JOB#: [id number] / [id number] CASEY
[2017-02-08] VITALS (14 sets, daily range): BP systolic 76–150; BP diastolic 33–69
[2017-02-08] MEDS: POTASSIUM CHLORIDE 30 MEQ in IV NORMAL SALINE 1000ML BAG 1,000 ML IV SCH ×3 (02:08→23:36)
--- NOTE | 2017-02-08 05:41 | ACF ---
Admission Forms Criteria RENAL FAILURE, ACUTE Clinical Indications for Admission to Inpatient Care ( Place 'X' for any and all applicable criteria): Admission is indicated for ALL (if I & II) or III of the following [A](2)(3)(4)( 5)(6)(7): [X]I. Acute renal failure as indicated by ANY ONE of the following: [X]a) A 3-fold rise in serum creatinine from baseline [ ]b) Serum creatinine greater than 4 mg/dL (354 micromoles/L) with an acute rise greater than 0.5 mg/dL (44.2 micromoles/L) [ ]c) Reduction of more than 75% in estimated glomerular filtration rate from baseline [ ]d) Estimated glomerular filtration rate less than 35 mL/min/1.73m2 (0.59mL/sec/1.73m2)in a child up to 18 years of age [ ]e) Anuria indicated by ALL of the following: [ ]i) Adequate volume status [ ]ii) Cessation of urine output indicated by ANY ONE of the following: [ ]1) Urine output less than 0.3 mL/kg/hr for 24 hours [ ]2) Anuria (urine output less than 0.1 mL/kg/ hr) for 12 hours [X] II. Renal failure cannot be managed in an outpatient setting or observational care setting as indicating by ANY ONE of the following: [ ]a) Altered mental status that is severe or persistent [ ]b) Volume overload or Respiratory distress (eg, clinically significant pulmonary edema) that is severe or persistent [ ]c) Cardiac arrhythmias of immediate concern [ ]d) Hemodynamic instability [ ]e) Clinically significant electrolyte abnormality that requires inpatient care (eg, hyperkalemia with severe ECG findings)[B] [ ]f) Clinically significant metabolic abnormality (eg, acidosis) that is severe or persistent [ ]g) Acute treatment of renal failure (eg, renal replacement therapy) not feasible or appropriate in observational care setting [ ]h) Clinical situation too unstable or uncertain (eg, inadequate urine output, ongoing decline in renal function, etiology unclear) [ ]i) Necessary support and caregiver ability to comply with outpatient treatment cannot be arranged in observation care timeframe (eg, within 24 hours) [X]j) Other significant finding or clinical condition judged not to be within scope of observation care [ ]III.General contraindications and/or Inappropriate clinical situations for Observational Care in patients with Acute Renal Failure, when ANY ONE of the following is required: [ ]a) Prediction of prolongation of LOS based on ANY ONE of the following may be considered as a contraindication for observational care 2, 3, 4, 5, 6, 7, 8 , 9, 10, 11 [ ]i) Age > 65 yrs. [ ]ii) Patient arriving by ambulance [ ]iii) Patient with high acuity [ ]iv) Patient requiring vital sign monitoring [ ]v) Patient on IV medication [ ]b) Systolic blood pressures 180mmHg 3,12 [ ]c) Patient with altered mental status including delirium and other alteration of consciousness, (3) [ ]d) Patient whose discharge disposition will be to a long-term home or rehabilitation home should not be managed in Emergency Department Observation Unit. CMS rule requires 3 days hospital stay before such placement.3,13 [ ]e) Patient with failure to thrive due to broad array of etiologies 3, 16,17 [ ]f) Inability to ambulate 3,14 Extended stay beyond goal length of stay may be needed for(13) [ ]a) Continuing uremic complications [ ]b) Care for comorbidities [ ]c) acute renal failure [ ]d) Need for dialysis The original [employer] content created by [employer] has been revised. The portions of the content which have been revised are identified through the use of italic text or in bold, and [facility] has neither reviewed nor approved the modified material. All other unmodified content is copyright [employer]. Please see references footnoted in the original [employer] edition 2016 Admission Criteria Met?: Yes ADRIENNE WOODS Feb 08, 2017 05:41
[2017-02-08] MEDS: HEPARIN PF for SUB-Q USE 5,000 UNIT/0.5 ML VIAL. SQ SCH ×3 (05:44→21:08)
[2017-02-08 06:49] LABS: CALCIUM 8.1 mg/dL (8.5-10.1); CREATININE 2.9 mg/dL (0.6-1.0); GFR 16.7; POTASSIUM 3.7 mmol/L (3.5-5.1)
[2017-02-08 07:45] LABS: BASO % 0 % (0-3); EOS % 0 % (0-3); LYMPH % 9 % (24-48); MEAN CORPUSCULAR HEMOGLOBIN 24 pg (25-35); MEAN CORPUSCULAR HGB CONC 32 g/dL (31-37); MEAN CORPUSCULAR VOLUME 75 fL (79-100); MONO % 9 % (0-9); NEUT % 81 % (31-73); PLATELET COUNT 398 x10^3/uL (140-400); RED BLOOD COUNT 2.71 x10^6/uL (3.50-5.40); RED CELL DISTRIBUTION WIDTH 23.2 % (11.5-14.5); WHITE BLOOD COUNT 10.7 x10^3/uL (4.0-11.0)
[2017-02-08 07:50] LABS: HEMATOCRIT 20.4 % (36.0-47.0); HEMOGLOBIN 6.5 g/dL (12.0-15.5)
[2017-02-08] MEDS: MONTELUKAST SODIUM 10 MG TABLET. PO SCH (08:18)
[2017-02-08] MEDS: ASPIRIN ENTERIC COATED 81 MG TABLET.DR. PO SCH (08:18)
[2017-02-08] MEDS: hydroCHLOROthiazide 25 MG TABLET PO SCH (08:18)
[2017-02-08] MEDS: LISINOPRIL 20 MG TABLET PO SCH (08:19)
[2017-02-08] MEDS ORDERED: NON FORMULARY ITEM (Edoxaban Tosylate (Savaysa) 60 MG) PO SCH (09:00)
[2017-02-08] MEDS ORDERED: IRON SUCROSE COMPLEX 500 MG in IV NORMAL SALINE 250ML 250 ML IV ONE (09:15)
[2017-02-08] MEDS ORDERED: hydrALAZINE 20 MG/ML VIAL. IVP PRN (10:45)
[2017-02-08] MEDS ORDERED: DOCUSATE SODIUM 100 MG CAPSULE. PO PRN (10:45)
[2017-02-08] MEDS ORDERED: MORPHINE SULFATE 2 MG/ML DISP.SYRIN. IV PRN (10:45)
[2017-02-08] MEDS ORDERED: ONDANSETRON PF 4 MG/2 ML VIAL. IV PRN (10:45)
[2017-02-08] MEDS: traMADol 50 MG TABLET PO PRN ×2 (11:43→21:01)
--- NOTE | 2017-02-08 12:11 | PDOC2 ---
CONSULT Date of Consult Date of Consult DATE: 02/08/17 TIME: 12:06 Reason for Consult Reason for Consult: REGINALD Referring Physician Referring Physician: Dr Glasgow Identification/Chief Complaint Chief Complaint weakness Problems: Source Source: Chart review, Patient History of Present Illness Reason for Visit: as dictated Baseline Creat WNL 2 yrs ago Past Medical History Cardiovascular: HTN Pulmonary: Asthma CENTRAL NERVOUS SYSTEM: Other GI: No pertinent hx Heme/Onc: No pertinent hx Hepatobiliary: No pertinent hx Psych: No pertinent hx Musculoskeletal: Osteoarthritis Rheumatologic: No pertinent hx Infectious disease: No pertinent hx Renal/: No pertinent hx Endocrine: No pertinent hx Past Surgical History Past Surgical History: Tubal Ligation, Other Family History Family History: Coronary Artery Disease, Stroke Social History ALCOHOL: none Drugs: None Lives: with Family Current Problem List Problem List Problems Medical Problems: (1) Anemia Status: Acute (2) Breast cancer Status: Acute (3) Hypokalemia Status: Acute (4) Renal failure Status: Acute Current Medications Current Medications Current Medications Sodium Chloride 1,000 ml @ 1,000 mls/hr 1X ONCE IV Last administered on 18:28; Start 02/07/17 at 18:00; Stop 02/07/17 at 18:59; Status DC Potassium Chloride (Klor-Con) 40 meq 1X ONCE PO Last administered on 02/07/17 19:32; Start 02/07/17 at 19:00; Stop 02/07/17 at 19:01; Status DC Potassium Chloride/Sodium Chloride 1,000 ml @ 150 mls/hr 1X ONCE IV Last administered on 02/07/17 19:33; Start 02/07/17 at 19:00; Stop 02/08/17 at 01:39; Status DC Ondansetron HCl (Zofran) 4 mg PRN Q8HRS PRN IV NAUSEA/VOMITING; Start 02/07/17 at 19:00; Stop 02/08/17 at 18:59 Fentanyl Citrate (Fentanyl 2ml Vial) 50 mcg PRN Q2HR PRN IV PAIN; Start at 19:00; Stop 02/08/17 at 18:59 Aspirin (Ecotrin) 81 mg DAILYWBKFT PO Last administered on 02/08/17 08:18; Start 02/08/17 at 08:00 Diltiazem HCl (Cardizem 24hr Cd) 180 mg DAILY PO Last administered on 02/08/17 08:19; Start 02/08/17 at 09:00 Montelukast Sodium (Singulair) 10 mg DAILY PO ; Start 02/08/17 at 09:00 Non-Formulary Medication 2 puff PRN QID PRN IH SHORTNESS OF BREATH; Start at 22:15; Status UNV Non-Formulary Medication 1 puff PRN BID PRN IH WHEEZING; Start 02/07/17 at 22:15 ; Status UNV Lisinopril (Prinivil) 20 mg DAILY PO Last administered on 02/08/17 08:19; Start 02/08/17 at 09:00 Non-Formulary Medication 60 mg DAILY PO ; Start 02/08/17 at 09:00; Stop 02/08/17 at 09:00; Status DC Ondansetron HCl (Zofran Odt) 8 mg PRN Q8HRS PRN PO NAUSEA/VOMITING; Start at 22:30 Hydrochlorothiazide (Hydrodiuril) 25 mg DAILY PO ; Start 02/08/17 at 09:00 Potassium Chloride 30 meq/ Sodium Chloride 1,015 ml @ 100 mls/hr Q10H9M IV Last administered on 02/08/17 02:08; Start 02/07/17 at 23:00 Heparin Sodium (Porcine) (Heparin Sq) 5,000 unit Q8HRS SQ Last administered on 02/08/17 05:44; Start 02/08/17 at 06:00 Iron Sucrose 500 mg/Sodium Chloride 275 ml @ 78.571 mls/ hr 1X ONCE IV ; Start 02/08/17 at 09:15; Stop 02/08/17 at 12:44 Iron Sucrose 500 mg/Sodium Chloride 275 ml @ 78.571 mls/ hr 1X ONCE IV ; Start 02/09/17 at 08:00; Stop 02/09/17 at 11:29 Acetaminophen (Tylenol) 650 mg PRN Q6HRS PRN PO FEVER; Start 02/08/17 at 10:45 Ondansetron HCl (Zofran) 4 mg PRN Q6HRS PRN IV NAUSEA/VOMITING; Start 02/08/17 at 10:45 Morphine Sulfate 2 mg PRN Q2HR PRN IV PAIN; Start 02/08/17 at 10:45 Tramadol HCl (Ultram) 50 mg PRN Q6HRS PRN PO PAIN Last administered on t 11:43; Start 02/08/17 at 10:45 Hydralazine HCl (Apresoline) 10 mg PRN Q4HRS PRN IVP ELEVATED BP, SEE COMMENTS ; Start 02/08/17 at 10:45 Docusate Sodium (Colace) 100 mg PRN DAILY PRN PO CONSTIPATION; Start 02/08/17 at 10:45 Active Scripts Active Savaysa (Edoxaban Tosylate) 60 Mg Tablet 60 Mg PO DAILY Diltiazem 24HR Cd (Diltiazem Hcl) 180 Mg Cap.er.24h 180 Mg PO DAILY Aspirin Ec (Aspirin) 81 Mg Tablet.dr 81 Mg PO DAILYWBKFT 30 Days Reported Zofran (Ondansetron Hcl) 8 Mg Tablet 1 Tab PO PRN Q8HRS PRN Lidocaine-Prilocaine Cream (Lidocaine/Prilocaine) 30 Gm Cream..g. 1 Sinan TP UD Dexamethasone 4 Mg Tablet 2 Tab PO DAILY Montelukast Sodium Tablet (Montelukast Sodium) 10 Mg Tablet 1 Tab PO PRN Iron (Ferrous Sulfate) 325 Mg Tablet 325 Mg PO TID Lotensin Hct 20-25 mg Tablet (Benazepril/Hydrochlorothiazide) 1 Each Tablet 1 Each PO DAILY Proair Hfa Inhaler (Albuterol Sulfate) 8.5 Gm Hfa.aer.ad 2 Puff IH PRN QID PRN not given today, every 6 hrs as needed for shortness of breath Qvar 80MCG Inhaler (Beclomethasone Dipropionate) 8.7 Gm Aer.w.adap 1 Puff IH PRN BID PRN next dose tonight, 12-10 at bedtime Allergies Allergies: Coded Allergies: No Known Drug Allergies (Unverified , 02/07/17) ROS Review of System GEN: no Fevers no Chills + Weakness no Chills EYES: + Visual Complaints (photophobia) ENT: no EN Drainage no Hearing deficiets CVS: no Orthopnea no CP RESP: no SOB no HERNANDEZ GI: + Nausea no Vomiting + Diarrhea : no Dysuria no Urgency dec Uo HEME: no easy bruising no Palp Ly Nodes NEURO no Focal Weakness no Sz PSYCH: no Suicidal Ideation no Depression SKIN: no Rashes ENDO: no Polyuria or Polydipsia no Hot/Cold Intolerance MU SK: occ Arthraigia no Myalgia Physical Exam Physical Exam General Appearance: Awake Alert Oriented x 3 In no Distress Eyes: VIsion Unchanged Conjunctiva Normal EN: No EN Drainage Mucous Memb. dryish Neck: no JVD no JVP Supple no Thyromegaly; thick neck CVS: S1 S2 no Murmur No Gallop No Rub no Edema Resp: no Rales no Rhonchi no Acc. Muscle use GI: BAS +ve NO Bruit Non Tender Non Distended : no CVA tenderness; no Suprapubic Tenderness SKIN: no Rashes Breast Exam deferred Mu.Sk: Adequate ROM no Muscle Atrophy Heme: Unable to palpate Obvious LAD no Splenomegaly NEURO: Good Strength and Tone Cranial Nerves II - XII grossly intact Psych: not Depressed no Active hallucination Vital Signs Vital Signs Date Time Temp Pulse Resp B/P (MAP) Pulse Ox O2 Delivery O2 Flow Rate FiO2 02/08/17 11:43 100 Room Air 02/08/17 11:00 97.4 84 19 126/58 97.4 Assessment & Plan ARF/ VMN - suspect due to diarrhea; better already with IVF. Current FLuid and E -lyte status does not necessitate emergent need for Dialysis. Will re-evaluate for Dialysis in am Anemia: defer management to Dr Glasgow; Transfuse as needed. Vol dpeeltioin - IVF as ordered Oliguria - suspect due to above - doubt ATN per se Low K - being replaced with IVF; check Mag Discussed Plan of Care and prognosis etc. at length with family. Labs Labs Laboratory Tests Test 02/07/17 17:34 02/07/17 17:52 02/08/17 06:15 02/08/17 07:30 Urine Collection Type Unknown Urine Color [place] Urine Clarity Cloudy Urine pH 5.0 Urine Specific [place] 1.025 Urine Protein 30 mg/dL (NEG-TRACE) Urine Glucose (UA) Negative mg/dL (NEG) Urine Ketones (Stick) Trace mg/dL (NEG) Urine Blood Trace (NEG) Urine Nitrite Negative (NEG) Urine Bilirubin Moderate (NEG) Urine Urobilinogen Dipstick 0.2 mg/dL (0.2 mg/dL) Urine Leukocyte Esterase Negative (NEG) Urine RBC 0 /HPF (0-2) Urine WBC 5-10 /HPF (0-4) Urine Squamous Epithelial Cells Mod /LPF Urine Transitional Epithelial Cells Few /LPF Urine Amorphous Sediment Present /HPF Urine Bacteria Few /HPF (0-FEW) Urine Hyaline Casts Many /HPF Urine Mucus Mod /LPF White Blood Count 12.5 x10^3/uL (4.0-11.0) 10.7 x10^3/uL (4.0-11.0) Red Blood Count 3.54 x10^6/uL (3.50-5.40) 2.71 x10^6/uL (3.50-5.40) Hemoglobin 8.3 g/dL (12.0-15.5) 6.5 g/dL (12.0-15.5) Hematocrit 25.6 % (36.0-47.0) 20.4 % (36.0-47.0) Mean Corpuscular Volume 72 fL (79-100) 75 fL (79-100) Mean Corpuscular Hemoglobin 24 pg (25-35) 24 pg (25-35) Mean Corpuscular Hemoglobin Concent 33 g/dL (31-37) 32 g/dL (31-37) Red Cell Distribution Width 24.0 % (11.5-14.5) 23.2 % (11.5-14.5) Platelet Count 500 x10^3/uL (140-400) 398 x10^3/uL (140-400) Neutrophils (%) (Auto) 79 % (31-73) 81 % (31-73) Lymphocytes (%) (Auto) 14 % (24-48) 9 % (24-48) Monocytes (%) (Auto) 7 % (0-9) 9 % (0-9) Eosinophils (%) (Auto) 0 % (0-3) 0 % (0-3) Basophils (%) (Auto) 0 % (0-3) 0 % (0-3) Neutrophils # (Auto) 9.9 x10^3uL (1.8-7.7) 8.7 x10^3uL (1.8-7.7) Lymphocytes # (Auto) 1.7 x10^3/uL (1.0-4.8) 1.0 x10^3/uL (1.0-4.8) Monocytes # (Auto) 0.9 x10^3/uL (0.0-1.1) 1.0 x10^3/uL (0.0-1.1) Eosinophils # (Auto) 0.0 x10^3/uL (0.0-0.7) 0.0 x10^3/uL (0.0-0.7) Basophils # (Auto) 0.0 x10^3/uL (0.0-0.2) 0.0 x10^3/uL (0.0-0.2) Segmented Neutrophils % 64 % (35-66) Band Neutrophils % 19 % (0-9) Lymphocytes % 6 % (24-48) Monocytes % 10 % (0-10) Myelocytes % 1 % (0-0) Nucleated Red Blood Cells 5 Platelet Estimate Increased (ADEQUATE) Polychromasia Slight Hypochromasia Slight Anisocytosis Mod Microcytosis Slight Sodium Level 139 mmol/L (136-145) 142 mmol/L (136-145) Potassium Level 2.5 mmol/L (3.5-5.1) 3.7 mmol/L (3.5-5.1) Chloride Level 100 mmol/L (98-107) 107 mmol/L (98-107) Carbon Dioxide Level 25 mmol/L (21-32) 23 mmol/L (21-32) Anion Gap 14 (6-14) 12 (6-14) Blood Urea Nitrogen 52 mg/dL (7-20) 46 mg/dL (7-20) Creatinine 4.0 mg/dL (0.6-1.0) 2.9 mg/dL (0.6-1.0) Estimated GFR (Cockcroft-Gault) 11.5 16.7 BUN/Creatinine Ratio 13 (6-20) Glucose Level 121 mg/dL (70-99) 101 mg/dL (70-99) Calcium Level 9.0 mg/dL (8.5-10.1) 8.1 mg/dL (8.5-10.1) Magnesium Level 2.1 mg/dL (1.8-2.4) Total Bilirubin 0.5 mg/dL (0.2-1.0) Aspartate Amino Transf (AST/SGOT) 20 U/L (15-37) Alanine Aminotransferase (ALT/SGPT) 22 U/L (14-59) Alkaline Phosphatase 86 U/L (46-116) Creatine Kinase 50 U/L (26-192) Total Protein 7.4 g/dL (6.4-8.2) Albumin 3.0 g/dL (3.4-5.0) Albumin/Globulin Ratio 0.7 (1.0-1.7) Laboratory Tests Test 02/07/17 17:34 02/07/17 17:52 02/08/17 06:15 02/08/17 07:30 Urine Collection Type Unknown Urine Color [place] Urine Clarity Cloudy Urine pH 5.0 Urine Specific [place] 1.025 Urine Protein 30 mg/dL (NEG-TRACE) Urine Glucose (UA) Negative mg/dL (NEG) Urine Ketones (Stick) Trace mg/dL (NEG) Urine Blood Trace (NEG) Urine Nitrite Negative (NEG) Urine Bilirubin Moderate (NEG) Urine Urobilinogen Dipstick 0.2 mg/dL (0.2 mg/dL) Urine Leukocyte Esterase Negative (NEG) Urine RBC 0 /HPF (0-2) Urine WBC 5-10 /HPF (0-4) Urine Squamous Epithelial Cells Mod /LPF Urine Transitional Epithelial Cells Few /LPF Urine Amorphous Sediment Present /HPF Urine Bacteria Few /HPF (0-FEW) Urine Hyaline Casts Many /HPF Urine Mucus Mod /LPF White Blood Count 12.5 x10^3/uL (4.0-11.0) 10.7 x10^3/uL (4.0-11.0) Red Blood Count 3.54 x10^6/uL (3.50-5.40) 2.71 x10^6/uL (3.50-5.40) Hemoglobin 8.3 g/dL (12.0-15.5) 6.5 g/dL (12.0-15.5) Hematocrit 25.6 % (36.0-47.0) 20.4 % (36.0-47.0) Mean Corpuscular Volume 72 fL (79-100) 75 fL (79-100) Mean Corpuscular Hemoglobin 24 pg (25-35) 24 pg (25-35) Mean Corpuscular Hemoglobin Concent 33 g/dL (31-37) 32 g/dL (31-37) Red Cell Distribution Width 24.0 % (11.5-14.5) 23.2 % (11.5-14.5) Platelet Count 500 x10^3/uL (140-400) 398 x10^3/uL (140-400) Neutrophils (%) (Auto) 79 % (31-73) 81 % (31-73) Lymphocytes (%) (Auto) 14 % (24-48) 9 % (24-48) Monocytes (%) (Auto) 7 % (0-9) 9 % (0-9) Eosinophils (%) (Auto) 0 % (0-3) 0 % (0-3) Basophils (%) (Auto) 0 % (0-3) 0 % (0-3) Neutrophils # (Auto) 9.9 x10^3uL (1.8-7.7) 8.7 x10^3uL (1.8-7.7) Lymphocytes # (Auto) 1.7 x10^3/uL (1.0-4.8) 1.0 x10^3/uL (1.0-4.8) Monocytes # (Auto) 0.9 x10^3/uL (0.0-1.1) 1.0 x10^3/uL (0.0-1.1) Eosinophils # (Auto) 0.0 x10^3/uL (0.0-0.7) 0.0 x10^3/uL (0.0-0.7) Basophils # (Auto) 0.0 x10^3/uL (0.0-0.2) 0.0 x10^3/uL (0.0-0.2) Segmented Neutrophils % 64 % (35-66) Band Neutrophils % 19 % (0-9) Lymphocytes % 6 % (24-48) Monocytes % 10 % (0-10) Myelocytes % 1 % (0-0) Nucleated Red Blood Cells 5 Platelet Estimate Increased (ADEQUATE) Polychromasia Slight Hypochromasia Slight Anisocytosis Mod Microcytosis Slight Sodium Level 139 mmol/L (136-145) 142 mmol/L (136-145) Potassium Level 2.5 mmol/L (3.5-5.1) 3.7 mmol/L (3.5-5.1) Chloride Level 100 mmol/L (98-107) 107 mmol/L (98-107) Carbon Dioxide Level 25 mmol/L (21-32) 23 mmol/L (21-32) Anion Gap 14 (6-14) 12 (6-14) Blood Urea Nitrogen 52 mg/dL (7-20) 46 mg/dL (7-20) Creatinine 4.0 mg/dL (0.6-1.0) 2.9 mg/dL (0.6-1.0) Estimated GFR (Cockcroft-Gault) 11.5 16.7 BUN/Creatinine Ratio 13 (6-20) Glucose Level 121 mg/dL (70-99) 101 mg/dL (70-99) Calcium Level 9.0 mg/dL (8.5-10.1) 8.1 mg/dL (8.5-10.1) Magnesium Level 2.1 mg/dL (1.8-2.4) Total Bilirubin 0.5 mg/dL (0.2-1.0) Aspartate Amino Transf (AST/SGOT) 20 U/L (15-37) Alanine Aminotransferase (ALT/SGPT) 22 U/L (14-59) Alkaline Phosphatase 86 U/L (46-116) Creatine Kinase 50 U/L (26-192) Total Protein 7.4 g/dL (6.4-8.2) Albumin 3.0 g/dL (3.4-5.0) Albumin/Globulin Ratio 0.7 (1.0-1.7) JULIANA FRENCH MD Feb 08, 2017 12:11
[2017-02-08] MEDS ORDERED: MAGNESIUM SULFATE 2GM 50 ML IV PRN (12:15)
--- NOTE | 2017-02-08 12:18 | PDOC ---
PROGRESS NOTES Chief Complaint Chief Complaint acute on chronic anemia, 2/2 chemo likely newly diagnosed BCa post right lumpectomy, currently on chemo REGINALD, 2/2 dehydration, vasomotor vs. chemo meds htn migraine plan: fu with onco, renal. 2u PRBC transfusion 02/08, iron Cr better, otherwise would like to hold lisinopril ivf labs tmr dvt ppx History of Present Illness History of Present Illness feel ok except severe headache, lower HB Vitals Vitals Vital Signs Date Time Temp Pulse Resp B/P (MAP) Pulse Ox O2 Delivery O2 Flow Rate FiO2 02/08/17 11:43 100 Room Air 02/08/17 11:00 97.4 84 19 126/58 97.4 Physical Exam General: Alert, Oriented X3, Cooperative Heart: Regular rate, Normal S1, Normal S2 Lungs: Clear Abdomen: Normal bowel sounds, Soft Extremities: No clubbing, No cyanosis Skin: No rashes Labs LABS Laboratory Tests Test 02/07/17 17:34 02/07/17 17:52 02/08/17 06:15 02/08/17 07:30 Urine Collection Type Unknown Urine Color [place] Urine Clarity Cloudy Urine pH 5.0 Urine Specific Waldo 1.025 Urine Protein 30 mg/dL (NEG-TRACE) Urine Glucose (UA) Negative mg/dL (NEG) Urine Ketones (Stick) Trace mg/dL (NEG) Urine Blood Trace (NEG) Urine Nitrite Negative (NEG) Urine Bilirubin Moderate (NEG) Urine Urobilinogen Dipstick 0.2 mg/dL (0.2 mg/dL) Urine Leukocyte Esterase Negative (NEG) Urine RBC 0 /HPF (0-2) Urine WBC 5-10 /HPF (0-4) Urine Squamous Epithelial Cells Mod /LPF Urine Transitional Epithelial Cells Few /LPF Urine Amorphous Sediment Present /HPF Urine Bacteria Few /HPF (0-FEW) Urine Hyaline Casts Many /HPF Urine Mucus Mod /LPF White Blood Count 12.5 x10^3/uL (4.0-11.0) 10.7 x10^3/uL (4.0-11.0) Red Blood Count 3.54 x10^6/uL (3.50-5.40) 2.71 x10^6/uL (3.50-5.40) Hemoglobin 8.3 g/dL (12.0-15.5) 6.5 g/dL (12.0-15.5) Hematocrit 25.6 % (36.0-47.0) 20.4 % (36.0-47.0) Mean Corpuscular Volume 72 fL (79-100) 75 fL (79-100) Mean Corpuscular Hemoglobin 24 pg (25-35) 24 pg (25-35) Mean Corpuscular Hemoglobin Concent 33 g/dL (31-37) 32 g/dL (31-37) Red Cell Distribution Width 24.0 % (11.5-14.5) 23.2 % (11.5-14.5) Platelet Count 500 x10^3/uL (140-400) 398 x10^3/uL (140-400) Neutrophils (%) (Auto) 79 % (31-73) 81 % (31-73) Lymphocytes (%) (Auto) 14 % (24-48) 9 % (24-48) Monocytes (%) (Auto) 7 % (0-9) 9 % (0-9) Eosinophils (%) (Auto) 0 % (0-3) 0 % (0-3) Basophils (%) (Auto) 0 % (0-3) 0 % (0-3) Neutrophils # (Auto) 9.9 x10^3uL (1.8-7.7) 8.7 x10^3uL (1.8-7.7) Lymphocytes # (Auto) 1.7 x10^3/uL (1.0-4.8) 1.0 x10^3/uL (1.0-4.8) Monocytes # (Auto) 0.9 x10^3/uL (0.0-1.1) 1.0 x10^3/uL (0.0-1.1) Eosinophils # (Auto) 0.0 x10^3/uL (0.0-0.7) 0.0 x10^3/uL (0.0-0.7) Basophils # (Auto) 0.0 x10^3/uL (0.0-0.2) 0.0 x10^3/uL (0.0-0.2) Segmented Neutrophils % 64 % (35-66) Band Neutrophils % 19 % (0-9) Lymphocytes % 6 % (24-48) Monocytes % 10 % (0-10) Myelocytes % 1 % (0-0) Nucleated Red Blood Cells 5 Platelet Estimate Increased (ADEQUATE) Polychromasia Slight Hypochromasia Slight Anisocytosis Mod Microcytosis Slight Sodium Level 139 mmol/L (136-145) 142 mmol/L (136-145) Potassium Level 2.5 mmol/L (3.5-5.1) 3.7 mmol/L (3.5-5.1) Chloride Level 100 mmol/L (98-107) 107 mmol/L (98-107) Carbon Dioxide Level 25 mmol/L (21-32) 23 mmol/L (21-32) Anion Gap 14 (6-14) 12 (6-14) Blood Urea Nitrogen 52 mg/dL (7-20) 46 mg/dL (7-20) Creatinine 4.0 mg/dL (0.6-1.0) 2.9 mg/dL (0.6-1.0) Estimated GFR (Cockcroft-Gault) 11.5 16.7 BUN/Creatinine Ratio 13 (6-20) Glucose Level 121 mg/dL (70-99) 101 mg/dL (70-99) Calcium Level 9.0 mg/dL (8.5-10.1) 8.1 mg/dL (8.5-10.1) Magnesium Level 2.1 mg/dL (1.8-2.4) Total Bilirubin 0.5 mg/dL (0.2-1.0) Aspartate Amino Transf (AST/SGOT) 20 U/L (15-37) Alanine Aminotransferase (ALT/SGPT) 22 U/L (14-59) Alkaline Phosphatase 86 U/L (46-116) Creatine Kinase 50 U/L (26-192) Total Protein 7.4 g/dL (6.4-8.2) Albumin 3.0 g/dL (3.4-5.0) Albumin/Globulin Ratio 0.7 (1.0-1.7) Review of Systems Review of Systems no fever, chills, sob or chest pain Assessment and Plan Assessmemt and Plan Problems Medical Problems: (1) Anemia Status: Acute (2) Breast cancer Status: Acute (3) Hypokalemia Status: Acute (4) Renal failure Status: Acute Problems: Comment Review of Relevant I have reviewed the following items kyra (where applicable) has been applied. Labs Laboratory Tests Test 02/07/17 17:34 02/07/17 17:52 02/08/17 06:15 02/08/17 07:30 Urine Collection Type Unknown Urine Color [place] Urine Clarity Cloudy Urine pH 5.0 Urine Specific Waldo 1.025 Urine Protein 30 mg/dL (NEG-TRACE) Urine Glucose (UA) Negative mg/dL (NEG) Urine Ketones (Stick) Trace mg/dL (NEG) Urine Blood Trace (NEG) Urine Nitrite Negative (NEG) Urine Bilirubin Moderate (NEG) Urine Urobilinogen Dipstick 0.2 mg/dL (0.2 mg/dL) Urine Leukocyte Esterase Negative (NEG) Urine RBC 0 /HPF (0-2) Urine WBC 5-10 /HPF (0-4) Urine Squamous Epithelial Cells Mod /LPF Urine Transitional Epithelial Cells Few /LPF Urine Amorphous Sediment Present /HPF Urine Bacteria Few /HPF (0-FEW) Urine Hyaline Casts Many /HPF Urine Mucus Mod /LPF White Blood Count 12.5 x10^3/uL (4.0-11.0) 10.7 x10^3/uL (4.0-11.0) Red Blood Count 3.54 x10^6/uL (3.50-5.40) 2.71 x10^6/uL (3.50-5.40) Hemoglobin 8.3 g/dL (12.0-15.5) 6.5 g/dL (12.0-15.5) Hematocrit 25.6 % (36.0-47.0) 20.4 % (36.0-47.0) Mean Corpuscular Volume 72 fL (79-100) 75 fL (79-100) Mean Corpuscular Hemoglobin 24 pg (25-35) 24 pg (25-35) Mean Corpuscular Hemoglobin Concent 33 g/dL (31-37) 32 g/dL (31-37) Red Cell Distribution Width 24.0 % (11.5-14.5) 23.2 % (11.5-14.5) Platelet Count 500 x10^3/uL (140-400) 398 x10^3/uL (140-400) Neutrophils (%) (Auto) 79 % (31-73) 81 % (31-73) Lymphocytes (%) (Auto) 14 % (24-48) 9 % (24-48) Monocytes (%) (Auto) 7 % (0-9) 9 % (0-9) Eosinophils (%) (Auto) 0 % (0-3) 0 % (0-3) Basophils (%) (Auto) 0 % (0-3) 0 % (0-3) Neutrophils # (Auto) 9.9 x10^3uL (1.8-7.7) 8.7 x10^3uL (1.8-7.7) Lymphocytes # (Auto) 1.7 x10^3/uL (1.0-4.8) 1.0 x10^3/uL (1.0-4.8) Monocytes # (Auto) 0.9 x10^3/uL (0.0-1.1) 1.0 x10^3/uL (0.0-1.1) Eosinophils # (Auto) 0.0 x10^3/uL (0.0-0.7) 0.0 x10^3/uL (0.0-0.7) Basophils # (Auto) 0.0 x10^3/uL (0.0-0.2) 0.0 x10^3/uL (0.0-0.2) Segmented Neutrophils % 64 % (35-66) Band Neutrophils % 19 % (0-9) Lymphocytes % 6 % (24-48) Monocytes % 10 % (0-10) Myelocytes % 1 % (0-0) Nucleated Red Blood Cells 5 Platelet Estimate Increased (ADEQUATE) Polychromasia Slight Hypochromasia Slight Anisocytosis Mod Microcytosis Slight Sodium Level 139 mmol/L (136-145) 142 mmol/L (136-145) Potassium Level 2.5 mmol/L (3.5-5.1) 3.7 mmol/L (3.5-5.1) Chloride Level 100 mmol/L (98-107) 107 mmol/L (98-107) Carbon Dioxide Level 25 mmol/L (21-32) 23 mmol/L (21-32) Anion Gap 14 (6-14) 12 (6-14) Blood Urea Nitrogen 52 mg/dL (7-20) 46 mg/dL (7-20) Creatinine 4.0 mg/dL (0.6-1.0) 2.9 mg/dL (0.6-1.0) Estimated GFR (Cockcroft-Gault) 11.5 16.7 BUN/Creatinine Ratio 13 (6-20) Glucose Level 121 mg/dL (70-99) 101 mg/dL (70-99) Calcium Level 9.0 mg/dL (8.5-10.1) 8.1 mg/dL (8.5-10.1) Magnesium Level 2.1 mg/dL (1.8-2.4) Total Bilirubin 0.5 mg/dL (0.2-1.0) Aspartate Amino Transf (AST/SGOT) 20 U/L (15-37) Alanine Aminotransferase (ALT/SGPT) 22 U/L (14-59) Alkaline Phosphatase 86 U/L (46-116) Creatine Kinase 50 U/L (26-192) Total Protein 7.4 g/dL (6.4-8.2) Albumin 3.0 g/dL (3.4-5.0) Albumin/Globulin Ratio 0.7 (1.0-1.7) Laboratory Tests Test 02/07/17 17:34 02/07/17 17:52 02/08/17 06:15 02/08/17 07:30 Urine Collection Type Unknown Urine Color [place] Urine Clarity Cloudy Urine pH 5.0 Urine Specific [place]do 1.025 Urine Protein 30 mg/dL (NEG-TRACE) Urine Glucose (UA) Negative mg/dL (NEG) Urine Ketones (Stick) Trace mg/dL (NEG) Urine Blood Trace (NEG) Urine Nitrite Negative (NEG) Urine Bilirubin Moderate (NEG) Urine Urobilinogen Dipstick 0.2 mg/dL (0.2 mg/dL) Urine Leukocyte Esterase Negative (NEG) Urine RBC 0 /HPF (0-2) Urine WBC 5-10 /HPF (0-4) Urine Squamous Epithelial Cells Mod /LPF Urine Transitional Epithelial Cells Few /LPF Urine Amorphous Sediment Present /HPF Urine Bacteria Few /HPF (0-FEW) Urine Hyaline Casts Many /HPF Urine Mucus Mod /LPF White Blood Count 12.5 x10^3/uL (4.0-11.0) 10.7 x10^3/uL (4.0-11.0) Red Blood Count 3.54 x10^6/uL (3.50-5.40) 2.71 x10^6/uL (3.50-5.40) Hemoglobin 8.3 g/dL (12.0-15.5) 6.5 g/dL (12.0-15.5) Hematocrit 25.6 % (36.0-47.0) 20.4 % (36.0-47.0) Mean Corpuscular Volume 72 fL (79-100) 75 fL (79-100) Mean Corpuscular Hemoglobin 24 pg (25-35) 24 pg (25-35) Mean Corpuscular Hemoglobin Concent 33 g/dL (31-37) 32 g/dL (31-37) Red Cell Distribution Width 24.0 % (11.5-14.5) 23.2 % (11.5-14.5) Platelet Count 500 x10^3/uL (140-400) 398 x10^3/uL (140-400) Neutrophils (%) (Auto) 79 % (31-73) 81 % (31-73) Lymphocytes (%) (Auto) 14 % (24-48) 9 % (24-48) Monocytes (%) (Auto) 7 % (0-9) 9 % (0-9) Eosinophils (%) (Auto) 0 % (0-3) 0 % (0-3) Basophils (%) (Auto) 0 % (0-3) 0 % (0-3) Neutrophils # (Auto) 9.9 x10^3uL (1.8-7.7) 8.7 x10^3uL (1.8-7.7) Lymphocytes # (Auto) 1.7 x10^3/uL (1.0-4.8) 1.0 x10^3/uL (1.0-4.8) Monocytes # (Auto) 0.9 x10^3/uL (0.0-1.1) 1.0 x10^3/uL (0.0-1.1) Eosinophils # (Auto) 0.0 x10^3/uL (0.0-0.7) 0.0 x10^3/uL (0.0-0.7) Basophils # (Auto) 0.0 x10^3/uL (0.0-0.2) 0.0 x10^3/uL (0.0-0.2) Segmented Neutrophils % 64 % (35-66) Band Neutrophils % 19 % (0-9) Lymphocytes % 6 % (24-48) Monocytes % 10 % (0-10) Myelocytes % 1 % (0-0) Nucleated Red Blood Cells 5 Platelet Estimate Increased (ADEQUATE) Polychromasia Slight Hypochromasia Slight Anisocytosis Mod Microcytosis Slight Sodium Level 139 mmol/L (136-145) 142 mmol/L (136-145) Potassium Level 2.5 mmol/L (3.5-5.1) 3.7 mmol/L (3.5-5.1) Chloride Level 100 mmol/L (98-107) 107 mmol/L (98-107) Carbon Dioxide Level 25 mmol/L (21-32) 23 mmol/L (21-32) Anion Gap 14 (6-14) 12 (6-14) Blood Urea Nitrogen 52 mg/dL (7-20) 46 mg/dL (7-20) Creatinine 4.0 mg/dL (0.6-1.0) 2.9 mg/dL (0.6-1.0) Estimated GFR (Cockcroft-Gault) 11.5 16.7 BUN/Creatinine Ratio 13 (6-20) Glucose Level 121 mg/dL (70-99) 101 mg/dL (70-99) Calcium Level 9.0 mg/dL (8.5-10.1) 8.1 mg/dL (8.5-10.1) Magnesium Level 2.1 mg/dL (1.8-2.4) Total Bilirubin 0.5 mg/dL (0.2-1.0) Aspartate Amino Transf (AST/SGOT) 20 U/L (15-37) Alanine Aminotransferase (ALT/SGPT) 22 U/L (14-59) Alkaline Phosphatase 86 U/L (46-116) Creatine Kinase 50 U/L (26-192) Total Protein 7.4 g/dL (6.4-8.2) Albumin 3.0 g/dL (3.4-5.0) Albumin/Globulin Ratio 0.7 (1.0-1.7) Medications Current Medications Sodium Chloride 1,000 ml @ 1,000 mls/hr 1X ONCE IV Last administered on t 18:28; Start 02/07/17 at 18:00; Stop 02/07/17 at 18:59; Status DC Potassium Chloride (Klor-Con) 40 meq 1X ONCE PO Last administered on 02/07/17 19:32; Start 02/07/17 at 19:00; Stop 02/07/17 at 19:01; Status DC Potassium Chloride/Sodium Chloride 1,000 ml @ 150 mls/hr 1X ONCE IV Last administered on 02/07/17 19:33; Start 02/07/17 at 19:00; Stop 02/08/17 at 01:39; Status DC Ondansetron HCl (Zofran) 4 mg PRN Q8HRS PRN IV NAUSEA/VOMITING; Start 02/07/17 at 19:00; Stop 02/08/17 at 18:59 Fentanyl Citrate (Fentanyl 2ml Vial) 50 mcg PRN Q2HR PRN IV PAIN; Start at 19:00; Stop 02/08/17 at 18:59 Aspirin (Ecotrin) 81 mg DAILYWBKFT PO Last administered on 02/08/17 08:18; Start 02/08/17 at 08:00 Diltiazem HCl (Cardizem 24hr Cd) 180 mg DAILY PO Last administered on 02/08/17 08:19; Start 02/08/17 at 09:00 Montelukast Sodium (Singulair) 10 mg DAILY PO ; Start 02/08/17 at 09:00 Non-Formulary Medication 2 puff PRN QID PRN IH SHORTNESS OF BREATH; Start at 22:15; Status UNV Non-Formulary Medication 1 puff PRN BID PRN IH WHEEZING; Start 02/07/17 at 22:15 ; Status UNV Lisinopril (Prinivil) 20 mg DAILY PO Last administered on 02/08/17 08:19; Start 02/08/17 at 09:00 Non-Formulary Medication 60 mg DAILY PO ; Start 02/08/17 at 09:00; Stop 02/08/17 at 09:00; Status DC Ondansetron HCl (Zofran Odt) 8 mg PRN Q8HRS PRN PO NAUSEA/VOMITING; Start at 22:30 Hydrochlorothiazide (Hydrodiuril) 25 mg DAILY PO ; Start 02/08/17 at 09:00 Potassium Chloride 30 meq/ Sodium Chloride 1,015 ml @ 100 mls/hr Q10H9M IV Last administered on 02/08/17 02:08; Start 02/07/17 at 23:00 Heparin Sodium (Porcine) (Heparin Sq) 5,000 unit Q8HRS SQ Last administered on 02/08/17 05:44; Start 02/08/17 at 06:00 Iron Sucrose 500 mg/Sodium Chloride 275 ml @ 78.571 mls/ hr 1X ONCE IV ; Start 02/08/17 at 09:15; Stop 02/08/17 at 12:44 Iron Sucrose 500 mg/Sodium Chloride 275 ml @ 78.571 mls/ hr 1X ONCE IV ; Start 02/09/17 at 08:00; Stop 02/09/17 at 11:29 Acetaminophen (Tylenol) 650 mg PRN Q6HRS PRN PO FEVER; Start 02/08/17 at 10:45 Ondansetron HCl (Zofran) 4 mg PRN Q6HRS PRN IV NAUSEA/VOMITING; Start 02/08/17 at 10:45 Morphine Sulfate 2 mg PRN Q2HR PRN IV PAIN; Start 02/08/17 at 10:45 Tramadol HCl (Ultram) 50 mg PRN Q6HRS PRN PO PAIN Last administered on 11:43; Start 02/08/17 at 10:45 Hydralazine HCl (Apresoline) 10 mg PRN Q4HRS PRN IVP ELEVATED BP, SEE COMMENTS ; Start 02/08/17 at 10:45 Docusate Sodium (Colace) 100 mg PRN DAILY PRN PO CONSTIPATION; Start 02/08/17 at 10:45 Magnesium Sulfate/ Dextrose 50 ml @ 25 mls/hr PRN DAILY PRN IV for Mag < 1.7 on am labs; Start 02/08/17 at 12:15 Active Scripts Active Savaysa (Edoxaban Tosylate) 60 Mg Tablet 60 Mg PO DAILY Diltiazem 24HR Cd (Diltiazem Hcl) 180 Mg Cap.er.24h 180 Mg PO DAILY Aspirin Ec (Aspirin) 81 Mg Tablet.dr 81 Mg PO DAILYWBKFT 30 Days Reported Zofran (Ondansetron Hcl) 8 Mg Tablet 1 Tab PO PRN Q8HRS PRN Lidocaine-Prilocaine Cream (Lidocaine/Prilocaine) 30 Gm Cream..g. 1 Sinan TP UD Dexamethasone 4 Mg Tablet 2 Tab PO DAILY Montelukast Sodium Tablet (Montelukast Sodium) 10 Mg Tablet 1 Tab PO PRN Iron (Ferrous Sulfate) 325 Mg Tablet 325 Mg PO TID Lotensin Hct 20-25 mg Tablet (Benazepril/Hydrochlorothiazide) 1 Each Tablet 1 Each PO DAILY Proair Hfa Inhaler (Albuterol Sulfate) 8.5 Gm Hfa.aer.ad 2 Puff IH PRN QID PRN not given today, every 6 hrs as needed for shortness of breath Qvar 80MCG Inhaler (Beclomethasone Dipropionate) 8.7 Gm Aer.w.adap 1 Puff IH PRN BID PRN next dose tonight, 12-10 at bedtime Vitals/I & O Vital Sign - Last 24 Hours 02/07/17 02/07/17 02/07/17 02/07/17 17:35 18:40 19:40 20:10 Temp 97.9 97.9 Pulse 93 82 92 90 Resp 20 18 23 22 B/P (MAP) 126/69 (88) 118/64 (82) 134/75 (94) 119/60 (79) Pulse Ox 98 98 98 O2 Delivery Room Air Room Air Room Air Room Air 02/07/17 02/07/17 02/07/17 02/08/17 20:40 22:20 23:09 03:08 Temp 97.5 98.2 98.4 97.5 98.2 98.4 Pulse 95 83 87 Resp 18 20 16 B/P (MAP) 113/52 (72) 110/39 (62) 76/33 (47) Pulse Ox 100 100 95 O2 Delivery Room Air Room Air Room Air Room Air 02/08/17 02/08/17 02/08/17 02/08/17 07:03 08:00 08:19 08:19 Temp 97.7 97.7 Pulse 86 86 86 Resp 20 B/P (MAP) 108/50 (69) 108/50 108/50 Pulse Ox 100 O2 Delivery Room Air Room Air 02/08/17 02/08/17 02/08/17 02/08/17 09:36 09:52 10:58 11:00 Temp 97.7 98.3 97.4 97.4 97.7 98.3 97.4 97.4 Pulse 86 85 84 84 Resp 20 19 19 19 B/P (MAP) 108/50 118/53 126/58 (80) 126/58 Pulse Ox 100 O2 Delivery Room Air 02/08/17 11:43 Pulse Ox 100 O2 Delivery Room Air Intake and Output 02/07/17 02/07/17 02/08/17 15:00 23:00 07:00 Intake Total 1400 ml Output Total 70 ml Balance 1330 ml ALEJANDRA GROVES MD Feb 08, 2017 12:17
[2017-02-08] MEDS: ACETAMINOPHEN 325 MG TABLET. PO PRN (16:42)
--- NOTE | 2017-02-08 20:13 | CONS ---
DATE OF CONSULTATION: 02/08/2017 REFERRING PROVIDER: Dr. Glasgow. REASON FOR CONSULTATION: Breast cancer and anemia. HISTORY OF PRESENT ILLNESS: The patient is a 56-year-old female, who presented to the clinic yesterday for her routine followup for breast cancer. She has a stage III triple negative breast cancer status post lumpectomy in October and has received 3 cycles of adjuvant Adriamycin/ Cytoxan with Neulasta support, last given on 01/25/2017. She was due for her fourth cycle before moving on to dose-dense paclitaxel. However, she had significant dizziness and increased heart rate for the last few days. She had also had diarrhea over the weekend and recent mouth sores, which have limited her oral intake as well. She recently completed a course of Diflucan. In clinic, her hemoglobin returned 6.8 and has gradually been trending down over the last few months. Her MCV has been low around 70. Her platelets have also been increasing and now up to 538. She was sent to the infusion center and received 1 unit of blood. Meanwhile, later in the afternoon, her creatinine returned at 4.0. Generally, her creatinine is 0.6. She was therefore admitted. Overnight, she received IV fluids and her creatinine has decreased to 2.9. Last evening, she did have a rise in her hemoglobin to 8.2, but it dropped down to 6.5 again this morning. PAST MEDICAL HISTORY: Breast cancer, asthma, hypertension and atrial fibrillation, on anticoagulation. PAST SURGICAL HISTORY: Right lumpectomy and oophorectomy. FAMILY HISTORY: No history of any breast cancer. SOCIAL HISTORY: No tobacco, alcohol or drug use. ALLERGIES: No known drug allergies. CURRENT MEDICATIONS: Colace, hydralazine, Ultram, morphine, Zofran, Tylenol, hydrochlorothiazide, lisinopril, Singulair, diltiazem, aspirin, heparin for DVT prophylaxis and potassium chloride. REVIEW OF SYSTEMS: Ten point review of systems completed and unremarkable, except for that mentioned in HPI. PHYSICAL EXAMINATION: VITAL SIGNS: Temperature 97.7, pulse 86, respiratory rate 20, blood pressure 126/58, 100% O2 on room air. GENERAL: She is alert and oriented. She does have some significant headache this morning causing some photophobia. Otherwise, she is in no distress. HEENT: Extraocular muscles are intact. Sclerae are without icterus. Mucous membranes do not reveal any mucositis or oral ulcers at this time. CARDIOVASCULAR: Heart is irregularly irregular, but rate is controlled. LUNGS: Clear to auscultation bilaterally. ABDOMEN: Soft, nontender. EXTREMITIES: No edema. NEUROLOGIC: No focal deficits. The light sensitivity is present. IMAGING AND LABORATORY DATA: Outside oncology records reviewed. Labs from the clinic and in hospital reviewed as above as well. ASSESSMENT AND PLAN: The patient is a 56-year-old female with the following medical problems: 1. Stage III triple negative breast cancer on adjuvant chemotherapy, last received dose-dense Adriamycin/Cytoxan with Neulasta support on 01/25/2017. Her next cycle will be delayed 1 week until her blood counts have stabilized. 2. Appod-rf-uieamid anemia, due to iron deficiency and chemotherapy. She has been taking oral iron t.i.d. I suggested she discontinue it and I will give her 1000 mg of Venofer while she is admitted here. We will follow up on her hemoglobin while admitted. She has received 1 unit of blood, but with fluids overnight, her hemoglobin has decreased again. Please transfuse for hemoglobin less than 7. 3. Secondary thrombocytosis, likely due to her iron deficiency. 4. Acute kidney insufficiency, likely due to dehydration from her recent diarrhea, limited oral intake. It improves with IV fluids overnight. Thank you for allowing me to participate in her care. I have discussed this case with Roxy Garcia, the oncology nurse practitioner, who is currently managed managing her in Dr. Romero's absence. YESSI ODONNELL DO DR: IESHA/matheus JOB#: [id number] / [id number] MTDD
--- NOTE | 2017-02-08 21:35 | CONS ---
DATE OF CONSULTATION: PRIMARY PHYSICIAN: Dr. Glasgow. REASON FOR CONSULTATION: Acute renal failure. HISTORY OF PRESENT ILLNESS: The patient is a 56-year-old -[place] female, who has been diagnosed with breast cancer earlier this year and is currently undergoing chemotherapy with a.c., one of which she knows is Adriamycin, she could not tell me what this ____ stood for. She developed significant amount of diarrhea over the last week, especially through the weekend and has been feeling weak, fatigued, tired and somewhat dizzy. No orthostasis. Denies nausea, vomiting. She tried to hydrate, but has had some swallowing difficulty. She is on Diflucan and Magic mouthwash for her presumed mucositis and/or oral thrush. In this setting, she was also noted to be severely anemic and was sent to the hospital for further evaluation. She was noted to have hemoglobin of 6.5 today and 8.3 previously. She does have a low MCV. She is known to have iron deficiency anemia. At presentation, her potassium was also 2.5. She is noted to be on lisinopril, HCTZ. PAST MEDICAL HISTORY: 1. Positive for chronic microcytic anemia, presumed iron deficiency for which she has been on supplements. 2. Asthma. 3. Obesity. 4. Hypertension. 5. Breast cancer. 6. Lumpectomy. 7. Salpingo-oophorectomy. 8. Atrial fibrillation. 9. Chronic arthritis. FAMILY HISTORY: Positive for hypertension, diabetes, cardiovascular disease, asthma, uterine cancer, lung cancer, breast cancer. SOCIAL HISTORY: Lives with family. Never smoke. No drinks. ALLERGIES: No known drug allergies. No NSAID use recently. For rest of details, see electronic records. JULIANA FRENCH MD DR: JOEL/matheus JOB#: [id number] / [id number]
[2017-02-09] MEDS: POTASSIUM CHLORIDE 30 MEQ in IV NORMAL SALINE 1000ML BAG 1,000 ML IV SCH (03:02)
[2017-02-09] MEDS: ACETAMINOPHEN 325 MG TABLET. PO PRN (03:44)
[2017-02-09 03:54] VITALS: BP 110/57
[2017-02-09] MEDS: HEPARIN PF for SUB-Q USE 5,000 UNIT/0.5 ML VIAL. SQ SCH (05:43)
[2017-02-09 06:53] VITALS: BP 125/61
[2017-02-09] MEDS ORDERED: IRON SUCROSE COMPLEX 500 MG in IV NORMAL SALINE 250ML 250 ML IV ONE (08:00)
[2017-02-09 08:17] LABS: ALBUMIN 2.5 g/dL (3.4-5.0); CALCIUM 8.5 mg/dL (8.5-10.1); CREATININE 1.6 mg/dL (0.6-1.0); GFR 33.1; PHOSPHORUS 3.2 mg/dL (2.6-4.7); POTASSIUM 3.9 mmol/L (3.5-5.1)
[2017-02-09] MEDS: ASPIRIN ENTERIC COATED 81 MG TABLET.DR. PO SCH (08:28)
[2017-02-09] MEDS: LISINOPRIL 20 MG TABLET PO SCH (08:29)
[2017-02-09] MEDS: hydroCHLOROthiazide 25 MG TABLET PO SCH (08:37)
[2017-02-09] MEDS: MONTELUKAST SODIUM 10 MG TABLET. PO SCH (08:37)
[2017-02-09 08:56] LABS: BASO % 0 % (0-3); EOS % 0 % (0-3); HEMOGLOBIN 8.8 g/dL (12.0-15.5); LYMPH # 1.1 x10^3/uL (1.0-4.8); LYMPH % 12 % (24-48); MEAN CORPUSCULAR HEMOGLOBIN 25 pg (25-35); MEAN CORPUSCULAR HGB CONC 33 g/dL (31-37); MEAN CORPUSCULAR VOLUME 77 fL (79-100); MONO % 11 % (0-9); NEUT % 77 % (31-73); PLATELET COUNT 381 x10^3/uL (140-400); RED BLOOD COUNT 3.49 x10^6/uL (3.50-5.40); RED CELL DISTRIBUTION WIDTH 22.8 % (11.5-14.5); WHITE BLOOD COUNT 9.6 x10^3/uL (4.0-11.0)
--- NOTE | 2017-02-09 08:56 | PDOC ---
Subjective: Subjective: Onc f/u- Breast cancer Headache better Mouth sores gone Energy improved No diarrhea Objective: Vital Signs: Vital Signs Date Time Temp Pulse Resp B/P (MAP) Pulse Ox O2 Delivery O2 Flow Rate FiO2 02/09/17 08:29 77 125/61 02/09/17 08:00 Room Air 02/09/17 06:53 97.7 18 98 97.7 Physical Exam: Heart: Regular rate Extremities: No edema General: Alert, Oriented X3, Cooperative, No acute distress Lungs: Other (no respiratory distress) Psych/Mental Status: Mental status NL, Mood NL Labs/Imaging: CBC pending Cr 2.9 --> 1.6 Assessment/Plan A/P: 1. Stage III triple negative breast cancer on adjuvant chemotherapy, last received dose-dense Adriamycin/Cytoxan with Neulasta support on 01/25/2017. Delay next cycle 1 week and will dose reduce. 2. Dgjhb-te-hshsvkq anemia, due to iron deficiency and chemotherapy. S/p 1000 mg Venofer. DC po iron. Will f/u as outpt. Transfused yesterday. CBC pending, transfuse for hgb < 7 please. 3. Secondary thrombocytosis, likely due to her iron deficiency. Decreased with dilution of IVF. 4. Acute kidney insufficiency, likely due to dehydration from her recent diarrhea, limited oral intake. Continues to improve with IVF. F/u 89, next chemo likely 02/15. Please call with further questions, thanks. YESSI ODONNELL DO Feb 09, 2017 08:56
[2017-02-09 11:08] VITALS: BP 142/67
--- NOTE | 2017-02-09 12:24 | PDOC3 ---
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 Daniels is a 56 old F, came for anemia. SHe was recently diagnosed with right side stage 3 BCa , s/p lumpectomy and on chemo. She developed diarrhea 2 days before coming. was found REGINALD, and Hb DROP to 6. Hb stable after 2 u PRBC, Cr better with ivf. diarrhea better. dc if ok with renal dc time 35min. General: Alert, Oriented X3, Cooperative Heart: Regular rate, Normal S1, Normal S2 Lungs: Clear Abdomen: Normal bowel sounds, Soft Extremities: No clubbing, No cyanosis Skin: No rashes Patient History: FH: breast cancer G8 SISTER FH: lung cancer G8 SISTER FH: uterine cancer G8 SISTER Family history: Asthma G8 BROTHER G8 SISTER Family history: Cardiovascular disease (situation) G8 BROTHER 32 MOTHER Family history: Diabetes mellitus (situation) 32 MOTHER Family history: Hypertension (situation) G8 BROTHER 32 MOTHER G8 SISTER Problems: Disposition home CONDITION AT DISCHARGE: Improved Diet regular Scheduled Aspirin (Aspirin Ec), 81 MG PO DAILYWBKFT Benazepril/Hydrochlorothiazide (Lotensin Hct 20-25 mg Tablet), 1 EACH PO DAILY, (Reported) Dexamethasone (Dexamethasone), 2 TAB PO DAILY, (Reported) Diltiazem Hcl (Diltiazem 24HR Cd), 180 MG PO DAILY Edoxaban Tosylate (Savaysa), 60 MG PO DAILY Ferrous Sulfate (Iron), 325 MG PO TID, (Reported) Lidocaine/Prilocaine (Lidocaine-Prilocaine Cream), 1 RADHA TP UD, (Reported) Montelukast Sodium (Montelukast Sodium Tablet), 1 TAB PO PRN, (Reported) Scheduled PRN Albuterol Sulfate (Proair Hfa Inhaler), 2 PUFF IH PRN QID PRN for SHORTNESS OF BREATH, (Reported) Beclomethasone Dipropionate (Qvar 80MCG Inhaler), 1 PUFF IH PRN BID PRN for WHEEZING, (Reported) Ondansetron Hcl (Zofran), 1 TAB PO PRN Q8HRS PRN for NAUSEA/VOMITING, (Reported) Follow Up onco next week ALEJANDRA GROVES MD Feb 09, 2017 12:24
== END 2017-02-09 12:55 | disposition home or self-care (01) | DRG 811 ==
LOC: ER 17:24 → 6 SOUTH 17:49
PROVIDERS: ADMIT Internal Medicine Hematology & Oncology; ATTEND Internal Medicine Hematology & Oncology
PROC: 30233N1 Transfusion of Nonautologous Red Blood Cells into Peripheral Vein, Percutaneous Approach (ICD-10-PCS; principal; 2017-02-08)
DX: D64.81 Anemia due to antineoplastic chemotherapy (principal); N17.0 Acute kidney failure with tubular necrosis; Z68.42 Body mass index [BMI] 45.0-49.9, adult; D47.3 Essential (hemorrhagic) thrombocythemia; E86.0 Dehydration; E87.6 Hypokalemia; G43.909 Migraine, unspecified, not intractable, without status migrainosus; I10 Essential (primary) hypertension; I48.91 Unspecified atrial fibrillation; K12.30 Oral mucositis (ulcerative), unspecified; R13.10 Dysphagia, unspecified; T45.1X5A Adverse effect of antineoplastic and immunosuppressive drugs, initial encounter; R34 Anuria and oliguria; M19.90 Unspecified osteoarthritis, unspecified site; E66.9 Obesity, unspecified; Z79.01 Long term (current) use of anticoagulants; Z80.3 Family history of malignant neoplasm of breast; Z80.49 Family history of malignant neoplasm of other genital organs; Z80.1 Family history of malignant neoplasm of trachea, bronchus and lung; Z82.3 Family history of stroke; Z82.49 Family history of ischemic heart disease and other diseases of the circulatory system; Z82.5 Family history of asthma and other chronic lower respiratory diseases; Z83.3 Family history of diabetes mellitus; Z98.51 Tubal ligation status; Z72.89 Other problems related to lifestyle; Z90.721 Acquired absence of ovaries, unilateral; J45.909 Unspecified asthma, uncomplicated; D50.9 Iron deficiency anemia, unspecified; Z85.3 Personal history of malignant neoplasm of breast
CPT/HCPCS: 36415; 80048; 80053; 80069; 81001; 82550; 83735; 85007; 85027; 86850; 86900; 86901; 86920; 87086; 96361; 96365; J1756; J3480; J7030; J7050; P9016; 99285-25

== ENCOUNTER → 2017-07-04 | Day surgery (SDC) | payer OTHER ==
[~2017-07-04] MED LIST changes: -AMOX1TAB61 PO; -ASPI-612 PO; -BECL8.7A6 IH; -BENA1TAB44 PO; -DILT180C29 PO; -Doxycycline Hyclate PO; -EDOX60TA PO; -FERR-36 PO; -GUAI600T47 PO; -HYDR-2758 PO; -HYDR-971 PO; -LEVO500T59 PO; +LIDOCAINE 2%/EPI 1:100,000 20 ML VIAL. IJ; -LISI20TA PO; -MONT10TA6 PO; -PROAIR HFA8.5 GM IH
[2017-07-04] MEDS: LIDOCAINE 2%/EPI 1:100,000 20 ML VIAL. IJ (08:39)
== END | disposition home or self-care (01) ==
LOC: SURG 07:49
DX: Z45.2 Encounter for adjustment and management of vascular access device (principal); I10 Essential (primary) hypertension; E66.9 Obesity, unspecified; M19.90 Unspecified osteoarthritis, unspecified site; D64.9 Anemia, unspecified; Z87.39 Personal history of other diseases of the musculoskeletal system and connective tissue; Z98.51 Tubal ligation status
CPT/HCPCS: 36590; 88300; J3490

== ENCOUNTER → 2017-10-29 | Outpatient (CLI) | payer OTHER | END | disposition home or self-care (01) | LOC: MAMMO 13:33 | DX: R92.8 Other abnormal and inconclusive findings on diagnostic imaging of breast (principal); Z85.3 Personal history of malignant neoplasm of breast | CPT/HCPCS: 77066 ==

== ENCOUNTER → 2018-11-20 | Outpatient (CLI) | payer OTHER ==
[2017-09-24 11:00] VITALS: BP 138/59
[~2018-11-20] MED LIST changes: +ALBU2.5V8 IH; +AMOX1TAB61 PO; +APIX5TAB PO; +ASPI-482 PO; +ASPI-612 PO; +BECL8.7A6 IH; +BENA1TAB44 PO; +DEXA4TAB PO; +DILT180C29 PO; +Doxycycline Hyclate PO; +EDOX60TA PO; +FERR-36 PO; +GUAI600T47 PO; +HYDR-2761 PO; +HYDR-3164 PO; +LEVO500T59 PO; +LIDO30CR TP; -LIDOCAINE 2%/EPI 1:100,000 20 ML VIAL. IJ; +LISI20TA PO; +MONT10TA6 PO; +MONT10TA9 PO; +ONDA8TAB9 PO
--- NOTE | 2018-11-20 14:23 | RAD ---
DATE: 11/20/2018 EXAM: DIGITAL DIAGNOSTIC BILATERAL HISTORY: Previous right breast cancer COMPARISON: 10/29/2017 This study was interpreted with the benefit of Computerized Aided Detection (CAD). Breast Density: SCATTERED The breast parenchyma shows scattered fibroglandular densities. Breast parenchyma level B. FINDINGS: There is a persistent area of abnormal density in the posterior aspect of the right breast at the 6:00 location, partially visualized mammographically. This appears to be unchanged and is compatible with residual postsurgical change. No new or enlarging breast densities are seen. There are stable lymph node type densities projected over the axillary tail region of the left breast. Benign type calcifications are present. No suspicious microcalcifications have developed. IMPRESSION: . 1. Stable post therapeutic findings. 2. No new breast abnormality is detected. BI-RADS CATEGORY: 2 BENIGN FINDING(S) RECOMMENDED FOLLOW-UP: 12M 12 MONTH FOLLOW-UP PQRS compliance statement: Patient information was entered into a reminder system with a target due date for the next mammogram. Mammography is a sensitive method for finding small breast cancers, but it does not detect them all and is not a substitute for careful clinical examination. A negative mammogram does not negate a clinically suspicious finding and should not result in delay in biopsying a clinically suspicious abnormality. "Our facility is accredited by the [employer] Mammography Program."
== END | disposition home or self-care (01) ==
LOC: MAMMO 13:24
PROVIDERS: ATTEND Radiology Radiation Oncology
DX: N64.89 Other specified disorders of breast (principal); Z85.3 Personal history of malignant neoplasm of breast; Z17.1 Estrogen receptor negative status [ER-]
CPT/HCPCS: 77066

== ENCOUNTER → 2019-05-14 | Outpatient (CLI) | payer MEDICAID ==
[2017-09-24 11:00] VITALS: BP 138/59
[~2019-05-14] MED LIST changes: +MONT10TA49 PO; -MONT10TA6 PO; -MONT10TA9 PO
--- NOTE | 2019-05-14 11:05 | CARD ---
MR#: [id number] Date of Study: 05/14/2019 Ordering Physician: YASMINE NATH, Referring Physician: YASMINE NATH, Tech: Mica Espinoza APPROVED REPORT EXAM: Two-dimensional and M-mode echocardiogram with Doppler and color Doppler. Other Information Quality : AverageHR: 89bpm Technically limited study due to body habitus. INDICATION Congestive Heart Failure 2D DIMENSIONS RVDd1.9 (2.9-3.5cm)Left Atrium(2D)3.2 (1.6-4.0cm) IVSd1.2 (0.7-1.1cm)Aortic Root(2D)2.5 (2.0-3.7cm) LVDd4.1 (3.9-5.9cm)LVOT Diameter2.1 (1.8-2.4cm) PWd1.0 (0.7-1.1cm)LVDs2.9 (2.5-4.0cm) FS (%) 27.6 %SV39.4 ml LVEF(%)54.1 (>50%) Aortic Valve AoV Peak Ralph.138.1cm/sAoV VTI26.5cm AO Peak GR.7.6mmHgLVOT Peak Ralph.129.1cm/s LVOT VTI 24.89cmAO Mean GR.5mmHg KHARI (VMAX)2.85af0FSV (VTI)3.20cm2 Mitral Valve MV E Rsxndlwu37.0cm/sMV DECEL TUKD532br MV A Rooopcca19.4cm/sMV HVY78ig E/A Ratio0.8MVA (PHT)3.73cm2 TDI E/Lateral E'9.7E/Medial E'8.3 Pulmonary Valve PV Peak Jlqtobtf104.3cm/sPV Peak Grad.6mmHg Pulmonary Vein S1 Nwitnzxv85.8cm/sD2 Igmbfstb69.1cm/s PVa [id number] LEFT VENTRICLE The left ventricle is normal size. There is mild septal left ventricular hypertrophy. The left ventri cular systolic function is normal and the ejection fraction is within normal range. The Ejection Frac tion is 60-65%. There is normal LV segmental wall motion. Transmitral Doppler flow pattern is Grade I -abnormal relaxation pattern. RIGHT VENTRICLE The right ventricle cavity is small. There is normal right ventricular wall thickness. The right vent ricular systolic function is normal. ATRIA The left atrium size is normal. The right atrium size is normal. The interatrial septum is intact wit h no evidence for an atrial septal defect or patent foramen ovale as noted on 2-D or Doppler imaging. AORTIC VALVE The aortic valve is not well visualized. Doppler and Color Flow revealed no significant aortic regurg itation. There is no significant aortic valvular stenosis. MITRAL VALVE Not well visualized. There is no evidence of mitral valve prolapse. There is no mitral valve stenosis . Doppler and Color-flow revealed trace mitral regurgitation. TRICUSPID VALVE The tricuspid valve is not well visualized. Doppler and Color Flow revealed trace tricuspid regurgita tion. There is no tricuspid valve stenosis. PULMONIC VALVE The pulmonic valve is not well visualized. Doppler and Color Flow revealed no pulmonic valvular regur gitation. GREAT VESSELS The aortic root is normal in size. The ascending aorta is normal in size. The IVC is normal in size a nd collapses >50% with inspiration. PERICARDIAL EFFUSION There is no pleural effusion. There is no evidence of significant pericardial effusion. Critical Notification Critical Value: No <Conclusion> The left ventricular systolic function is normal and the ejection fraction is within normal range. Th e Ejection Fraction is 60-65%. There is normal LV segmental wall motion. Technically difficult study. Signed by : Yasmine Nath, Electronically Approved : 05/14/2019 11:04:55
[2019-05-14 11:34] LABS: CALCIUM 9.1 mg/dL (8.5-10.1); CREATININE 0.8 mg/dL (0.6-1.0); GFR 88.2; POTASSIUM 3.7 mmol/L (3.5-5.1)
== END | disposition home or self-care (01) ==
LOC: ECHO 10:11
PROVIDERS: ATTEND Internal Medicine Cardiovascular Disease
DX: I11.0 Hypertensive heart disease with heart failure (principal); I50.33 Acute on chronic diastolic (congestive) heart failure
CPT/HCPCS: 36415; 80048; 83880; 93306

== ENCOUNTER → 2019-12-04 | Outpatient (CLI) | payer MEDICAID ==
[2017-09-24 11:00] VITALS: BP 138/59
[~2019-12-04] MED LIST changes: -EDOX60TA PO; +EDOX60TA2 PO
--- NOTE | 2019-12-04 12:57 | RAD ---
INDICATION: 59 years of age asymptomatic female patient presents for screening mammography. TECHNIQUE: Full field craniocaudal and mediolateral oblique images of both breasts were obtained using digital technique with tomosynthesis and also analyzed with computer-aided detection software. COMPARISON: Prior mammographic imaging dating back to 12/25/2016.. BREAST COMPOSITION: Category B: There are scattered fibroglandular densities. FINDINGS: Benign calcifications are present. The parenchymal pattern appears stable. Asymmetry at the posterior depth right breast is less conspicuous. No suspicious masses, microcalcifications or architectural distortion is present to suggest malignancy in either breast. The visualized axillae are unremarkable. IMPRESSION: No mammographic evidence of malignancy. RECOMMENDATION: Annual screening mammography is recommended, unless clinically indicated sooner based on symptoms or change in physical exam. BIRADS 2: BENIGN Electronically signed by: Dean Joaquin MD (12/04/2019 12:54 PM) [facility]
== END | disposition home or self-care (01) ==
LOC: MAMMO 12:00
PROVIDERS: ATTEND Family Medicine
DX: R92.1 Mammographic calcification found on diagnostic imaging of breast (principal); Z85.3 Personal history of malignant neoplasm of breast
CPT/HCPCS: 77066

== ENCOUNTER → 2020-10-18 | Outpatient (CLI) | payer MEDICAID ==
[2017-09-24 11:00] VITALS: BP 138/59
[~2020-10-18] MED LIST changes: -ASPI-612 PO; +ASPI-886 PO; +PERFLUTREN PROTEIN-A MICROSPHR 0.22 MG/ML 3 ML VIAL. IV ONE
--- NOTE | 2020-10-18 15:25 | CARD ---
MR#: [id number] Date of Study: 10/18/2020 Ordering Physician: YASMINE NATH, Referring Physician: YASMINE NATH, Tech: Andreina Lutz [facility] APPROVED REPORT EXAM: Two-dimensional and M-mode echocardiogram with Doppler and color Doppler. Other Information Quality : Technically Limited Rhythm : Atrial FibrillationTechnically limited study due to body habitus. INDICATION Atrial Fibrillation Echo Enhancing Agent Agent/Amount Used: Definity mL 2D DIMENSIONS RVDd2.8 (2.9-3.5cm)Left Atrium(2D)3.4 (1.6-4.0cm) IVSd0.9 (0.7-1.1cm)Aortic Root(2D)3.0 (2.0-3.7cm) LVDd5.5 (3.9-5.9cm)LVOT Diameter2.3 (1.8-2.4cm) PWd0.9 (0.7-1.1cm)LVDs4.3 (2.5-4.0cm) FS (%) 25.0 %SV64.3 ml LVEF(%)50.0 (>50%) Aortic Valve AoV Peak Ralph.150.7cm/sAoV VTI33.2cm AO Peak GR.9.1mmHgLVOT Peak Ralph.134.5cm/s AO Mean GR.5mmHgAVA (VMAX)3.71cm2 KHARI (VTI)3.60cm2 Mitral Valve MV E Zzytronu000.5cm/sMV DECEL SMOP639pk MV A Qvfbniqa039.2cm/sE/A Ratio0.9 Pulmonary Vein S1 Gsupnffi61.9cm/sD2 Tatipcgo06.2cm/s LEFT VENTRICLE The left ventricle is normal size. There is normal left ventricular wall thickness. The left ventricu lar systolic function is normal and the ejection fraction is within normal range. EF 50-55% Septal mo tion consistent with conduction abnormality. Otherwise, grossly normal wall motion. Transmitral Doppl er flow pattern is Grade I-abnormal relaxation pattern. RIGHT VENTRICLE The right ventricle is normal size. The right ventricular systolic function is normal. ATRIA The left atrium size is normal. The right atrium size is normal. The interatrial septum is intact wit h no evidence for an atrial septal defect or patent foramen ovale as noted on 2-D or Doppler imaging. AORTIC VALVE The aortic valve is not well visualized. Doppler and Color Flow revealed no significant aortic regurg itation. There is no significant aortic valvular stenosis. MITRAL VALVE The mitral valve is calcified but opens well. There is no evidence of mitral valve prolapse. There is no mitral valve stenosis. Doppler and Color-flow revealed trace to mild mitral regurgitation. TRICUSPID VALVE The tricuspid valve is normal in structure and function. Doppler and Color Flow revealed no tricuspid valve regurgitation noted. There is no tricuspid valve stenosis. PULMONIC VALVE The pulmonic valve is not well visualized. Doppler and Color Flow revealed no pulmonic valvular regur gitation. There is no pulmonic valvular stenosis. GREAT VESSELS The aortic root is normal in size. The ascending aorta is not well seen. The IVC is normal in size an d collapses >50% with inspiration. PERICARDIAL EFFUSION There is no evidence of significant pericardial effusion. Critical Notification Critical Value: No <Conclusion> The left ventricular systolic function is normal and the ejection fraction is within normal range. EF 50-55% Septal motion consistent with conduction abnormality. Otherwise, grossly normal wall motion. Technically limited study. Signed by : Yasmine Nath, Electronically Approved : 10/18/2020 15:25:29
== END ==
LOC: ECHO 10:02
PROVIDERS: ATTEND Internal Medicine Cardiovascular Disease
DX: I05.9 Rheumatic mitral valve disease, unspecified (principal); I48.0 Paroxysmal atrial fibrillation
CPT/HCPCS: C8929; Q9956

== ENCOUNTER → 2020-12-07 | Outpatient (CLI) | payer MEDICAID ==
[2017-09-24 11:00] VITALS: BP 138/59
[~2020-12-07] MED LIST changes: -LIDO30CR TP; +LIDO30CR2 TP; -PERFLUTREN PROTEIN-A MICROSPHR 0.22 MG/ML 3 ML VIAL. IV ONE
[2020-12-07 14:24] LABS: BASO # 0.1 x10^3/uL (0.0-0.2); BASO % 1 % (0-3); EOS # 0.4 x10^3/uL (0.0-0.7); EOS % 4 % (0-3); HEMATOCRIT 35.3 % (36.0-47.0); HEMOGLOBIN 11.3 g/dL (12.0-15.5); LYMPH % 31 % (24-48); MEAN CORPUSCULAR HEMOGLOBIN 27 pg (25-35); MEAN CORPUSCULAR HGB CONC 32 g/dL (31-37); MEAN CORPUSCULAR VOLUME 84 fL (79-100); MONO # 0.5 x10^3/uL (0.0-1.1); MONO % 5 % (0-9); NEUT # 5.8 x10^3/uL (1.8-7.7); NEUT % 59 % (31-73); PLATELET COUNT 387 x10^3/uL (140-400); RED BLOOD COUNT 4.22 x10^6/uL (3.50-5.40); RED CELL DISTRIBUTION WIDTH 15.6 % (11.5-14.5); WHITE BLOOD COUNT 9.8 x10^3/uL (4.0-11.0)
[2020-12-07 14:39] LABS: ALBUMIN 3.4 g/dL (3.4-5.0); ALBUMIN/GLOBULIN RATIO 0.7 (1.0-1.7); CALCIUM 8.7 mg/dL (8.5-10.1); CREATININE 0.8 mg/dL (0.6-1.0); GFR 87.9; POTASSIUM 3.9 mmol/L (3.5-5.1); TOTAL BILIRUBIN 0.3 mg/dL (0.2-1.0); TOTAL PROTEIN 8.4 g/dL (6.4-8.2)
== END ==
LOC: LAB 12:48
PROVIDERS: ATTEND Internal Medicine Cardiovascular Disease
DX: I48.0 Paroxysmal atrial fibrillation (principal)
CPT/HCPCS: 36415; 80053; 83880; 85025

== ENCOUNTER → 2020-12-07 | Outpatient (CLI) | payer MEDICAID ==
[2017-09-24 11:00] VITALS: BP 138/59
--- NOTE | 2020-12-08 14:06 | RAD ---
DATE: 12/07/2020 EXAM: DIGITAL DIAGNOSTIC BILATERAL HISTORY: History of right breast cancer in 2017 post lumpectomy, chemotherapy and radiation. COMPARISON: 12/04/2019, 11/20/2018, 12/25/2016 This study was interpreted with the benefit of Computerized Aided Detection (CAD). Breast Density: SCATTERED The breast parenchyma shows scattered fibroglandular densities. Breast parenchyma level B. FINDINGS: There is unchanged focal asymmetry at 6:00 in the far posterior right breast at the lumpectomy site. No suspicious mass, calcifications, or suspicious architectural distortion in either breast. There are unchanged intramammary lymph nodes. IMPRESSION: Stable post lumpectomy changes in the right breast. No evidence of malignancy. BI-RADS CATEGORY: 2 BENIGN FINDING(S) RECOMMENDED FOLLOW-UP: 12M 12 MONTH FOLLOW-UP PQRS compliance statement: Patient information was entered into a reminder system with a target due date for the next mammogram. Mammography is a sensitive method for finding small breast cancers, but it does not detect them all and is not a substitute for careful clinical examination. A negative mammogram does not negate a clinically suspicious finding and should not result in delay in biopsying a clinically suspicious abnormality. "Our facility is accredited by the [employer] Mammography Program."
== END ==
LOC: MAMMO 12:43
PROVIDERS: ATTEND Internal Medicine Hematology & Oncology
DX: R92.8 Other abnormal and inconclusive findings on diagnostic imaging of breast (principal); Z90.11 Acquired absence of right breast and nipple
CPT/HCPCS: 77066